=== PATIENT | male | born 1935 | race Caucasian/White ===

== ENCOUNTER 2018-04-27 12:31 | Outpatient (CLI) | payer MEDICARE, BC ==
[~2018-04-27 12:31] MED LIST: Iopamidol 370 76% 100 ML VIAL ONE
--- NOTE | 2018-04-27 14:46 | CT ---
CT ABDOMEN AND PELVIS WITH IV CONTRAST: 04/27/2018 PROVIDED CLINICAL HISTORY: Colon cancer. COMPARISON: None. FINDINGS: The visualized lung bases are free of significant opacity. The liver, spleen, pancreas, kidneys, and adrenal glands demonstrate an unremarkable CT appearance. There is focal mass-like mural prominence involving the distal ascending colon, near the hepatic flex ure, presumably reflecting the provided clinical history of known colon cancer. There is lack of ora l contrast material within the cecum, which could be on the basis of retained fecal material and/or m ass. There is no evidence for bowel obstruction. There is no inflammatory fat stranding, free fluid, or retroperitoneal lymph node enlargement. There is a mildly prominent lymph node present at the medial margin of the colonic mass that may reflect a n involved lymph node. This is not enlarged. Vascular calcification is noted involving the abdominal aorta and its branches, including conspicuous focal calcification involving the distal aspects of the proximal superior mesenteric artery. Postoperative changes of prior prostatectomy are noted. There are small fat-containing bilateral ing uinal hernias. The osseous structures demonstrate no concerning lytic or blastic lesions. Lumbar spine degenerative changes are seen. IMPRESSION: 1. Abnormalities of the right colon, one or both of which may correspond to the provided clinical hi story of known colon cancer. 2. No CT evidence for distant metastatic disease. 3. Chronic findings as above. POS: [facility]
== END 2018-04-27 12:32 | disposition home or self-care (01) ==
LOC: BICCT 12:31
PROVIDERS: ATTEND Internal Medicine
DX: K63.89 Other specified diseases of intestine (principal); R93.3 Abnormal findings on diagnostic imaging of other parts of digestive tract; I70.0 Atherosclerosis of aorta; K40.20 Bilateral inguinal hernia, without obstruction or gangrene, not specified as recurrent; K55.1 Chronic vascular disorders of intestine; M47.816 Spondylosis without myelopathy or radiculopathy, lumbar region; Z90.79 Acquired absence of other genital organ(s)
CPT/HCPCS: 74177; 82565; Q9967

== ENCOUNTER 2018-05-09 13:07 | Outpatient (CLI) | payer MEDICARE, BC ==
[2018-05-09] MEDS ORDERED: ISOVUE-370 76%-LOCM 1 ML ONE (13:45)
--- NOTE | 2018-05-09 14:27 | CT ---
CT CHEST WITH CONTRAST: Technique: Multiple contiguous axial images were obtained through the chest with IV enhancement. Indications: Colon cancer. Staging. Comparison: No comparison chest CT. FINDINGS: The lung anderson are well aerated. There is a pleural based nodule in the peripheral left upper lobe measuring up to 1.3 cm AP dimension axial plane. Just inferior to this is another tiny pleural based nodule measuring approximately 3 mm . In the lingula of the left upper lobe there is a linear opacity which extends to the pleural surface and there is some mild pleural thickening at this location peripherally. This has the appearance of d ense plate-like atelectasis. There is mild stranding in both lower lobes, slightly more prominent on the left which appears chroni c. Several old left sided rib fractures are noted. The mediastinum is unremarkable. No adenopathy. Images through the upper abdomen unremarkable. IMPRESSION: 1. Pleural based nodule in the peripheral left upper lobe measuring up to 1.3 cm AP dimension. 2. Linear opacity in the lingula of the left upper lobe extending to the pleural surface, probable pl ate-like atelectasis. Recommend short term follow up to confirm stability. Suggest repeat chest CT in 3-4 months unless further imaging with PET scan is performed as staging, in which case these densiti es could be assessed. POS: [facility]
== END 2018-05-09 13:08 | disposition home or self-care (01) ==
LOC: BICCT 13:07
PROVIDERS: ATTEND Internal Medicine Hematology & Oncology
DX: C18.2 Malignant neoplasm of ascending colon (principal); R91.8 Other nonspecific abnormal finding of lung field
CPT/HCPCS: 71260; Q9966

== ENCOUNTER 2018-05-19 09:11 | Outpatient (CLI) | payer MEDICARE, BC ==
--- NOTE | 2018-05-19 14:15 | PET ---
PET SCAN WITH CT ATTENUATION CORRECTION: COMPARISON: None. CORRELATION: Chest CT 05/09/2018, abdomen CT 04/27/2018. HISTORY: Colon cancer with a 1.3 cm left upper lobe nodule. TECHNIQUE: PET scan with CT attenuation correction is performed from the base of the brain to the proximal thigh s following the intravenous administration of 12.9 mCi of [id number]. FINDINGS: HEAD AND NECK: No abnormal FDG localization. CHEST: No abnormal FDG localization with regards to the nodule in the left upper lobe. There are no areas o f abnormal FDG avidity in the chest. ABDOMEN AND PELVIS: With regards to the solid organs, no abnormal FDG localization. There is increased FDG avidity invol ving the ileocecal junction with a maximum SUV of 16.7. There is increased FDG avidity involving the hepatic flexure. There is increased FDG avidity involving the sigmoid colon and rectum. FDG avidit y at the level of the rectum is 7. OSSEOUS STRUCTURES: No abnormal FDG avidity. IMPRESSION: 1. Fluorodeoxyglucose avidity involving 3 separate areas of the colon. Please refer to previous col onoscopy with regards for the site of presumed colon cancer. 2. No evidence of fluorodeoxyglucose avidity involving a nodule of the left upper lobe. POS: [facility]
== END 2018-05-19 09:12 | disposition home or self-care (01) ==
LOC: PET 09:11
PROVIDERS: ATTEND Internal Medicine Hematology & Oncology
DX: C18.9 Malignant neoplasm of colon, unspecified (principal); R91.1 Solitary pulmonary nodule
CPT/HCPCS: 78815; A9552

== ENCOUNTER 2018-05-22 11:00 | Inpatient (IN) | payer MEDICARE, BC ==
[2018-05-22 12:12] VITALS: BMI 28.7
[2018-05-30] MEDS ORDERED: Fentanyl 100 MCG/2 ML VIAL ONE ×3 (06:19→06:32)
[2018-05-30] MEDS ORDERED: Midazolam HCl 2 mg/2 ml Vial ONE (06:19)
[2018-05-30] MEDS ORDERED: Dexamethasone 4 mg/ml Vial ONE (06:19)
[2018-05-30] MEDS ORDERED: cefOXitin 2 GM VIAL ONE (06:38)
[2018-05-30] MEDS ORDERED: Sodium Chloride 0.9% 100 ML ONE (06:39)
[2018-05-30] MEDS ORDERED: ceFOXitin 1 GM VIAL ONE (10:08)
[2018-05-30] MEDS ORDERED: Ondansetron HCl/PF 4 MG/2 ML Vial IVP PRN (10:40)
[2018-05-30] MEDS ORDERED: Promethazine HCl 25 MG/ML VIAL IM PRN ×2 (10:40→12:33)
[2018-05-30] MEDS ORDERED: Promethazine HCl 25 MG/ML VIAL SLOW IVP PRN (10:40)
[2018-05-30] MEDS ORDERED: Acetaminophen 1,000 MG in Premix Bag 1 BAG IVPB SCH (12:00)
[2018-05-30] MEDS ORDERED: Fentanyl 100 MCG/2 ML VIAL SLOW IVP PRN (12:33)
[2018-05-30] MEDS ORDERED: traMADol HCl 50 MG TAB PO PRN (12:33)
[2018-05-30] MEDS ORDERED: hydrALAZINE 20 MG/ML VIAL SLOW IVP PRN (12:33)
[2018-05-30] MEDS ORDERED: Bupivacaine HCl 0.5%/Epinephrine 1:200,000/PF 30 ml Vial ONE (13:29)
[2018-05-30] MEDS: traMADol HCl 50 MG TAB PO PRN (14:30)
[2018-05-30] MEDS: Sodium Chloride 0.9% 1,000 ML IV SCH (14:31)
[2018-05-30] MEDS: Acetaminophen 1,000 MG in Premix Bag 1 BAG IVPB SCH ×2 (14:31→20:22)
[2018-05-30] MEDS ORDERED: PHENYLEPHRINE-NS 100 MCG/ML 10 ML SYRINGE ONE (15:29)
[2018-05-30] MEDS ORDERED: Lidocaine 1% PF 5 ML VIAL ONE (15:29)
[2018-05-30] MEDS ORDERED: Rocuronium Bromide 10 MG/ML (10ML VIAL) ONE (15:29)
[2018-05-30] MEDS ORDERED: Ondansetron PF 4 MG/2 ML Vial ONE (15:29)
[2018-05-30] MEDS ORDERED: ePHEDrine 50 MG/ML VIAL ONE (15:29)
[2018-05-30] MEDS ORDERED: PROPOFOL 200 MG/20 ML VIAL ONE (15:29)
[2018-05-30] MEDS ORDERED: Glycopyrrolate 0.2 MG/ML 5 ML SYRINGE ONE (15:29)
[2018-05-30] MEDS ORDERED: Dexamethasone 20 MG/5 ML VIAL ONE (15:29)
[2018-05-30] MEDS ORDERED: cefOXitin 2 GM in Sodium Chloride 0.9% 100 ML IVPB SCH (16:00)
[2018-05-30] MEDS: cefOXitin Sodium/Dextrose,Iso 2 GM in Premix Bag 1 BAG IVPB SCH (17:12)
[2018-05-30] MEDS: Ondansetron PF 4 MG/2 ML Vial IVP PRN (17:32)
[2018-05-30] MEDS ORDERED: Enoxaparin Sodium 40 MG/0.4 ML SYRINGE SC SCH (21:00)
[2018-05-31] MEDS: cefOXitin Sodium/Dextrose,Iso 2 GM in Premix Bag 1 BAG IVPB SCH (00:18)
[2018-05-31] MEDS: Ondansetron PF 4 MG/2 ML Vial IVP PRN (00:29)
[2018-05-31] MEDS: Sodium Chloride 0.9% 1,000 ML IV SCH (00:30)
[2018-05-31] MEDS: Acetaminophen 1,000 MG in Premix Bag 1 BAG IVPB SCH ×2 (02:14→08:46)
[2018-05-31] MEDS: traMADol HCl 50 MG TAB PO PRN ×2 (05:02→13:20)
[2018-05-31 06:32] LABS: #Lymphocytes 1.3 thou/uL (1.20-3.40); #Monocytes 1.3 thou/uL (0.11-0.59); #Neutrophils 11.3 thou/uL (1.40-6.50); %Basophils 0.2 % (0.0-1.0); %Eosinophils 0.1 % (0.0-10.0); %Lymphocytes 9.2 % (21.0-51.0); %Monocytes 9.2 % (0.0-10.0); %Neutrophils 81.3 % (42.0-75.0); Anisocytosis SLIGHT = 6-15 cells (100X) (0-5/hpf); Hemoglobin 11.4 g/dL (14.0-18.0); MDiff Complete? YES; Mean Corpuscular HGB CONC 31.4 g/dL (32.0-36.0); Mean Corpuscular Hemoglobin 27.8 pg (27.0-31.0); Mean Corpuscular Volume 88.4 fL (78.0-98.0); Mean Platelet Volume 9.2 fL (7.4-10.4); Platelet Count 225 thou/uL (130-400); RBC Distribution Width 20.3 % (11.5-14.5); Red Blood Cell (RBC) Count 4.09 mill/uL (4.70-6.10); White Blood Cell (WBC) Count 13.9 thou/uL (4.8-10.8)
[2018-05-31 06:54] LABS: Anion Gap 12 mmol/L (10-20); BUN (Urea Nitrogen) 15 mg/dL (8.4-25.7); Calc. Creatinine Clearance 66 mL/min (70-130); Calcium 8.5 mg/dL (7.8-10.44); Carbon Dioxide 21 mmol/L (23-31); Chloride 105 mmol/L (98-107); Estimated GFR-MDRD 65; Glucose 141 mg/dL (83-110); Potassium 4.1 mmol/L (3.5-5.1); Sodium 134 mmol/L (136-145)
[2018-05-31] MEDS ORDERED: Sodium Chloride 0.9% 1,000 ML IV SCH (07:46)
[2018-05-31] MEDS: Lisinopril 10 MG TAB PO SCH (08:47)
[2018-05-31] MEDS: Amlodipine 10 MG TAB PO SCH (08:47)
[2018-05-31] MEDS ORDERED: Famotidine/PF 20 mg/2ml Vial SLOW IVP SCH (09:00)
[2018-05-31] MEDS ORDERED: Famotidine 20 MG TAB PO SCH (09:00)
--- NOTE | 2018-05-31 10:42 | PDOC.GSPN ---
Surgery Progress Note: Subj - Subjective Patient reports: tolerating liquids well Narrative: Pain well controlled, walking in tena Surgery Progress Note: Obj - Vital signs Vital signs: Vital Signs - Most Recent Temp Pulse Resp BP Pulse Ox 97.7 F 66 14 166/73 H 97 05/31/18 08:00 05/31/18 08:47 05/31/18 08:00 05/31/18 08:47 05/31/18 08:00 - Physical Exam General: no distress Cardiovascular: regular rate and rhythm Respiratory: clear to auscultation Abdomen: soft, appropriately tender Wound: healing well Surgery Progress Note: Results - Labs Result Diagrams: 05/31/18 05:26 05/31/18 05:26 Lab results: Laboratory Results - last 24 hr 05/31/18 05/31/18 05:26 05:26 WBC 13.9 H RBC 4.09 L Hgb 11.4 L Hct 36.1 L MCV 88.4 MCH 27.8 MCHC 31.4 L RDW 20.3 H Plt Count 225 MPV 9.2 Neutrophils % 81.3 H Neutrophils % (Manual) Not Reportable Lymphocytes % 9.2 L Monocytes % 9.2 Eosinophils % 0.1 Basophils % 0.2 Neutrophils # 11.3 H Lymphocytes # 1.3 Monocytes # 1.3 H Eosinophils # 0.0 Basophils # 0.0 Anisocytosis SLIGHT = 6-15 cells Sodium 134 L Potassium 4.1 Chloride 105 Carbon Dioxide 21 L Anion Gap 12 BUN 15 Creatinine 1.08 Estimated GFR (MDRD) 65 Glucose 141 H Calcium 8.5 Surgery Progress Note: A/P - Problem (1) Mass of hepatic flexure of colon Current Visit: Yes Code(s): K63.9 - DISEASE OF INTESTINE, UNSPECIFIED Status : Acute - Plan Plan: POD 1 total abd colectomy -await path -full liquids -ostomy teaching
--- NOTE | 2018-05-31 11:02 | OP ---
DATE OF PROCEDURE: 05/30/2018 PREOPERATIVE DIAGNOSES: 1. Cecal and hepatic flexure of colon masses. 2. Multiple sessile polyps throughout the right transverse colon, descending colon, and sigmoid colon. PROCEDURES PERFORMED: Total abdominal colectomy with ileorectal anastomosis, diverting loop ileostomy, mobilization of splenic flexure. ANESTHESIA: General. ESTIMATED BLOOD LOSS: 50 mL. COMPLICATIONS: None. FINDINGS: The masses are in the colon after opening specimen on the back table. INDICATION: The patient is an 83-year-old male, who recently underwent colonoscopy revealing a mass in the hepatic flexure of colon. He had multiple sessile polyps throughout the colon, most of which were not resectable. He presents for definitive colectomy. DESCRIPTION OF PROCEDURE: The patient was taken to the operating room, laid in supine position on the operating room table. After general anesthetic was obtained, the abdomen was prepped and draped in a sterile fashion. A Valenzuela catheter had been placed. The patient was placed in lithotomy position. A midline incision was made. The abdomen was entered carefully. Bookwalter retractor was placed. The right colon was mobilized along the white line of Toldt. Ureter was found excluded from the dissection. Hepatic flexure was mobilized in the usual fashion. Lesser sac was entered to mobilize the transverse colon. The ileocolic vessels were taken near its base. Middle colic was taken near its base using Danyelle clamps and silk ties. Splenic flexure was mobilized in the usual fashion. Descending colon mobilized along the white line of Toldt. The ureter was found and excluded from the dissection on the left. Dissection was taken down into the pelvis. CHERISE was taken near its base. Dissection was taken down in the presacral area all the way down to the rectosigmoid junction. Stapler was fired across the terminal ileum. A reload was fired across the rectosigmoid junction. The colon was opened on the back table to reveal the masses to be in the specimen sent to Path. A [id number] ileorectal anastomosis was performed from the end of the ileum down into the rectum. The common colotomy and enterotomy were closed using running Vicryl suture in 2 layers. Proximal to this location found for ileostomy. Ellipse of the skin taken out from the left lower quadrant with a cruciate incision and the fascia was performed all the way into the abdominal cavity. The loop ileostomy was brought up through here and held in place using a [place]. The abdomen was irrigated. There was no ongoing bleeding. PDS was used to close the fascia from the top and the bottom, and tied in the middle. Subcutaneous tissues were irrigated and closed using 3-0 Vicryl, 4-0 Monocryl, and Dermabond. The ostomy was matured in the usual fashion using 3-0 Vicryl suture. The patient was sent to Recovery in stable condition. All instrument counts, needle counts, and lap counts were correct. Job ID: [id number]
[2018-06-01 05:11] VITALS: TEMP 97.6
[2018-06-01 06:14] LABS: #Eosinphils 0.2 thou/uL (0.0-0.7); #Lymphocytes 2.1 thou/uL (1.20-3.40); #Monocytes 0.8 thou/uL (0.11-0.59); #Neutrophils 8.6 thou/uL (1.40-6.50); %Basophils 0.4 % (0.0-1.0); %Eosinophils 1.4 % (0.0-10.0); %Lymphocytes 17.9 % (21.0-51.0); %Monocytes 7.1 % (0.0-10.0); %Neutrophils 73.2 % (42.0-75.0); Hemoglobin 10.8 g/dL (14.0-18.0); Mean Corpuscular Hemoglobin 28.1 pg (27.0-31.0); Mean Corpuscular Volume 93.8 fL (78.0-98.0); Mean Platelet Volume 9.9 fL (7.4-10.4); Platelet Count 177 thou/uL (130-400); RBC Distribution Width 20.6 % (11.5-14.5); Red Blood Cell (RBC) Count 3.85 mill/uL (4.70-6.10); White Blood Cell (WBC) Count 11.7 thou/uL (4.8-10.8)
--- NOTE | 2018-06-01 07:31 | PDOC.GSPN ---
Surgery Progress Note: Subj - Subjective Patient reports: feels better Narrative: Patient is a 83 yo male POD2 for total abdominal colectomy with ileostomy for right sided malignancy and multiple polyps. He is resting well, pain is controlled. He was able to ambulate yesterday and has been using incentive spirometry regularly. Jesus catheter was placed due to inability to void. he denied SOB and chest pain Surgery Progress Note: Obj - Vital signs Vital signs: Vital Signs - Most Recent Temp Pulse Resp BP Pulse Ox 97.6 F 54 L 16 137/77 95 06/01/18 05:10 06/01/18 05:10 06/01/18 05:10 06/01/18 05:10 06/01/18 05:10 - Physical Exam General: no distress, no pain Neck: no lymphadectomy Cardiovascular: regular rate and rhythm, no murmur Respiratory: clear to auscultation, normal expansion, breath sounds present Abdomen: soft, nondistended, decreased bowel sounds, appropriately tender Wound: dressing clean,dry,intact, healing well (some surrounding incisional ecchymosis present) Surgery Progress Note: Results - Labs Result Diagrams: 06/01/18 05:16 05/31/18 05:26 Lab results: Laboratory Results - last 24 hr 06/01/18 05:16 WBC 11.7 H RBC 3.85 L Hgb 10.8 L Hct 36.2 L MCV 93.8 MCH 28.1 MCHC 30.0 L RDW 20.6 H Plt Count 177 MPV 9.9 Neutrophils % 73.2 Neutrophils % (Manual) Not Reportable Lymphocytes % 17.9 L Monocytes % 7.1 Eosinophils % 1.4 Basophils % 0.4 Neutrophils # 8.6 H Lymphocytes # 2.1 Monocytes # 0.8 H Eosinophils # 0.2 Basophils # 0.0 Surgery Progress Note: A/P - Problem (1) Mass of hepatic flexure of colon Current Visit: Yes Code(s): K63.9 - DISEASE OF INTESTINE, UNSPECIFIED Status : Acute Assessment and Plan: continue clear liquids today advance to full if tolerated at end of day, ambulate X3, tramadol for pain, monitor ileostomy output. IVF now at 30ml/hr, DC if able to continue adequate oral hydration. Contin DVT/GI prophylaxis (2) Urinary retention with incomplete bladder emptying Current Visit: Yes Code(s): R33.9 - RETENTION OF URINE, UNSPECIFIED Status: Acute Assessment and Plan: continue jesus, if ambulating well today D/C tomorrow with trial of independent urination
[2018-06-01] MEDS: Amlodipine 10 MG TAB PO SCH (08:10)
[2018-06-01] MEDS: Lisinopril 10 MG TAB PO SCH (08:11)
[2018-06-01 11:52] VITALS: BP 143/73
[2018-06-01] MEDS ORDERED: Acetaminophen 325 MG TAB PO PRN (14:06)
--- NOTE | 2018-06-01 15:05 | DIS ---
DATE OF ADMISSION: 05/30/2018 DATE OF DISCHARGE: 06/01/2018 ADMITTING DIAGNOSIS: Right colon mass, multiple colon polyps. DISCHARGE DIAGNOSIS: Right colon mass, multiple colon polyps. PROCEDURES: Total abdominal colectomy with loop ileostomy by Jane without complication. CONDITION ON DISCHARGE: Improved. STAFF: Wili Lara MD HOSPITAL COURSE: The patient had urinary retention, needs a catheter to go home with a leg bag. He is tolerating a full liquid diet. He is going to continue that for two days at home and then do casseroles for few days. Flomax sent to his pharmacy. On the day of discharge, he is doing well. He is afebrile. Pain is well controlled. He is discharged home. Home Health is going to help with ostomy care at home. Job ID: [id number]
[2018-06-01] MEDS ORDERED: Enoxaparin Sodium 40 MG/0.4 ML SYRINGE SC SCH (21:00)
== END 2018-06-01 14:57 | disposition home or self-care (01) | DRG 331 ==
LOC: EDSTATUS 11:00 → SURG A 05-30 05:51
PROVIDERS: ADMIT Surgery; ATTEND Surgery
PROC: 0DTE0ZZ Resection of Large Intestine, Open Approach (ICD-10-PCS; principal; 2018-05-31)
PROC: 0D1B0Z4 Bypass Ileum to Cutaneous, Open Approach (ICD-10-PCS; 2018-05-31)
DX: C18.9 Malignant neoplasm of colon, unspecified (principal); I48.91 Unspecified atrial fibrillation; I10 Essential (primary) hypertension; R33.9 Retention of urine, unspecified; Z79.899 Other long term (current) drug therapy; Z88.0 Allergy status to penicillin; D12.4 Benign neoplasm of descending colon; D12.5 Benign neoplasm of sigmoid colon; D12.3 Benign neoplasm of transverse colon
CPT/HCPCS: 36415; 36416; 80048; 85025; 88309; 88313; 88342; J0131; J0670; J0694; J1100; J1650; J2001; J2250; J2405; J2704; J3010; J3490

== ENCOUNTER 2018-05-22 12:38 | Outpatient (CLI) | payer MEDICARE, BC ==
[2018-05-22 13:11] LABS: #Basophils 0.1 thou/uL (0.0-0.2); #Eosinphils 0.2 thou/uL (0.0-0.7); #Lymphocytes 2.2 thou/uL (1.20-3.40); #Monocytes 0.7 thou/uL (0.11-0.59); #Neutrophils 5.2 thou/uL (1.40-6.50); %Basophils 0.8 % (0.0-1.0); %Eosinophils 2.7 % (0.0-10.0); %Lymphocytes 25.9 % (21.0-51.0); %Monocytes 8.9 % (0.0-10.0); %Neutrophils 61.8 % (42.0-75.0); Hemoglobin 11.4 g/dL (14.0-18.0); Mean Corpuscular HGB CONC 31.1 g/dL (32.0-36.0); Mean Platelet Volume 9.1 fL (7.4-10.4); Platelet Count 239 thou/uL (130-400); RBC Distribution Width 19.5 % (11.5-14.5); Red Blood Cell (RBC) Count 4.23 mill/uL (4.70-6.10); White Blood Cell (WBC) Count 8.3 thou/uL (4.8-10.8)
[2018-05-22 13:22] LABS: PTT 28.9 SEC (22.9-36.1); Prothrombin Time 13.7 SEC (12.0-14.7)
[2018-05-22 13:30] LABS: Hemoglobin A1c 4.1 % (4.0-6.0)
[2018-05-22 13:38] LABS: Anion Gap 11 mmol/L (10-20); BUN (Urea Nitrogen) 15 mg/dL (8.4-25.7); Calc. Creatinine Clearance 0 mL/min (70-130); Carbon Dioxide 24 mmol/L (23-31); Chloride 109 mmol/L (98-107); Estimated GFR-MDRD 68; Glucose 82 mg/dL (83-110); Potassium 3.8 mmol/L (3.5-5.1); Sodium 140 mmol/L (136-145)
--- NOTE | 2018-05-23 22:28 | EKG ---
Test Reason : Blood Pressure : / mmHG Vent. Rate : 051 BPM Atrial Rate : 159 BPM P-R Int : 000 ms QRS Dur : 102 ms QT Int : 466 ms P-R-T Axes : 000 -58 042 degrees QTc Int : 429 ms Atrial fibrillation with slow ventricular response Incomplete right bundle branch block Left anterior fascicular block Abnormal ECG When compared with ECG of 22-OCT-2009 16:08, Atrial fibrillation has replaced Electronic ventricular pacemaker Confirmed by Joann HUBER ([id number]) on 05/23/2018 10:28:25 PM Referred By: DINESH Confirmed By:Joann HUBER
== END 2018-05-22 12:39 | disposition home or self-care (01) ==
LOC: LABBT 12:38
PROVIDERS: ATTEND Surgery
DX: Z01.818 Encounter for other preprocedural examination (principal); C18.9 Malignant neoplasm of colon, unspecified; I48.91 Unspecified atrial fibrillation
CPT/HCPCS: 80048; 83036; 85025; 85610; 85730; 93005; 93010

== ENCOUNTER 2018-06-27 10:09 | Outpatient (CLI) | payer MEDICARE, BC ==
[~2018-06-27 10:09] MED LIST changes: -Iopamidol 370 76% 100 ML VIAL ONE; +MD-Gastroview 120 ML BOT ONE
--- NOTE | 2018-06-27 13:02 | RAD ---
EXAM: XR Gastrografin Enema Solid Column PROVIDED CLINICAL HISTORY: Colon cancer evaluate rectal anastomosis. COMPARISON: None FINDINGS: Gastrografin enema was performed in the usual fashion. There is a small bowel/rectal anastomosis seen . Contrast freely flows through the region of the anastomosis and subsequently into the patient's colostomy bag; there is no extravasation of contrast seen to suggest a leak. Multiple surgical clips overlie the pelvis likely related to prior prostatectomy. IMPRESSION: Gastrografin enema demonstrating no extravasation of contrast to suggest a leak in the region of the patient's small bowel/rectal anastomosis.
== END 2018-06-27 10:10 | disposition home or self-care (01) ==
LOC: RAD 10:09
PROVIDERS: ATTEND Surgery
DX: C18.9 Malignant neoplasm of colon, unspecified (principal); K63.89 Other specified diseases of intestine
CPT/HCPCS: 74270; Q9963

== ENCOUNTER 2018-07-07 01:52 | Outpatient (CLI) | payer MEDICARE, BC ==
[2018-07-07 12:18] LABS: Hemoglobin 12.5 g/dL (14.0-18.0); Mean Corpuscular HGB CONC 33.1 g/dL (32.0-36.0); Mean Corpuscular Hemoglobin 29.3 pg (27.0-31.0); Mean Corpuscular Volume 88.3 fL (78.0-98.0); Mean Platelet Volume 9.9 fL (7.4-10.4); Platelet Count 167 thou/uL (130-400); RBC Distribution Width 20.4 % (11.5-14.5); Red Blood Cell (RBC) Count 4.26 mill/uL (4.70-6.10)
[2018-07-07 12:36] LABS: Anion Gap 13 mmol/L (10-20); BUN (Urea Nitrogen) 23 mg/dL (8.4-25.7); Calc. Creatinine Clearance 0 mL/min (70-130); Calcium 9.1 mg/dL (7.8-10.44); Carbon Dioxide 19 mmol/L (23-31); Chloride 112 mmol/L (98-107); Estimated GFR-MDRD 60; Glucose 91 mg/dL (83-110); INR-International Normal Ratio 1.4; PTT 30.5 SEC (22.9-36.1); Potassium 4.7 mmol/L (3.5-5.1); Prothrombin Time 17.4 SEC (12.0-14.7); Sodium 139 mmol/L (136-145)
== END 2018-07-07 01:53 | disposition home or self-care (01) ==
LOC: LABBT 01:52
PROVIDERS: ATTEND Surgery
DX: Z01.812 Encounter for preprocedural laboratory examination (principal); C18.9 Malignant neoplasm of colon, unspecified
CPT/HCPCS: 80048; 85027; 85610; 85730

== ENCOUNTER 2018-07-12 09:40 | Inpatient (IN) | payer MEDICARE, BC ==
[2018-07-12] MEDS ORDERED: Fentanyl 250 MCG/5 ML VIAL ONE (11:29)
[2018-07-12] MEDS ORDERED: Sodium Chloride 0.9% 100 ML ONE (11:39)
[2018-07-12] MEDS ORDERED: cefOXitin 2 GM VIAL ONE (11:39)
[2018-07-12] MEDS ORDERED: hydrALAZINE 20 MG/ML VIAL ONE (13:45)
[2018-07-12] MEDS ORDERED: Promethazine HCl 25 MG/ML VIAL IM PRN (13:53)
[2018-07-12] MEDS ORDERED: hydrALAZINE 20 MG/ML VIAL SLOW IVP PRN (13:53)
[2018-07-12] MEDS ORDERED: Morphine 4 MG/ML VIAL SLOW IVP PRN (13:53)
[2018-07-12] MEDS ORDERED: Ondansetron PF 4 MG/2 ML Vial IVP PRN (13:53)
[2018-07-12] MEDS ORDERED: Fentanyl 100 MCG/2 ML VIAL ONE ×2 (14:01→14:30)
[2018-07-12] MEDS ORDERED: Rocuronium Bromide 10 MG/ML (10ML VIAL) ONE (14:55)
[2018-07-12] MEDS ORDERED: Ondansetron PF 4 MG/2 ML Vial ONE (14:55)
[2018-07-12] MEDS ORDERED: Glycopyrrolate 0.2 MG/ML 5 ML SYRINGE ONE (14:55)
[2018-07-12] MEDS ORDERED: Lidocaine 1% PF 5 ML VIAL ONE (14:55)
[2018-07-12] MEDS ORDERED: PROPOFOL 200 MG/20 ML VIAL ONE (14:55)
[2018-07-12] MEDS ORDERED: Morphine 2 MG/ML SYRINGE SLOW IVP PRN (15:05)
[2018-07-12 15:28] VITALS: BMI 26.4
[2018-07-12] MEDS: Acetaminophen 1,000 MG in Premix Bag 1 BAG IVPB SCH ×2 (16:07→22:36)
[2018-07-12] MEDS: Sodium Chloride 0.9% 1,000 ML IV SCH (16:08)
[2018-07-12] MEDS ORDERED: cefOXitin 2 GM in Sodium Chloride 0.9% 100 ML IVPB SCH (20:00)
[2018-07-12] MEDS ORDERED: Famotidine/PF 20 mg/2ml Vial SLOW IVP SCH (21:00)
[2018-07-12] MEDS ORDERED: Famotidine 20 MG TAB PO SCH (21:00)
[2018-07-12] MEDS: cefOXitin Sodium/Dextrose,Iso 2 GM in Premix Bag 1 BAG IVPB SCH (21:12)
--- NOTE | 2018-07-12 22:00 | OP ---
DATE OF PROCEDURE: 07/12/2018 PREOPERATIVE DIAGNOSIS: Colon cancer, attention to ileostomy. POSTOPERATIVE DIAGNOSIS: Colon cancer, attention to ileostomy. PROCEDURE PERFORMED: Ileostomy reversal (small-bowel resection anastomosis). ANESTHESIA: General. ESTIMATED BLOOD LOSS: 50 mL. COMPLICATIONS: None. DESCRIPTION OF PROCEDURE: The patient was taken to the operating room and laid supine on the operating room table. After general anesthetic was obtained, the abdomen was shaved, prepped, and draped in a sterile fashion. Elliptical incision was used to ellipse out the previous ileostomy in the left lower quadrant. Scar dissected down to all the way into the abdomen around the ostomy. All posterior abdominal wall adhesions were taken down. More small bowel was able to brought up into the wound. A ZHANE 75 stapler was fired across just proximal and distal to the skin area of the ostomy. The mesentery was taken using Danyelle clamps, silk ties, so the skin segment was able to be removed. The resultant 2 ends of small intestine were brought together in an antimesenteric fashion. ZHANE 75 was used to perform the heoh-rs-ampz anastomosis via an enterotomy made on the antimesenteric surface of each. The common enterotomy was closed using TA60 stapler. The staple line, the crotch and the corners were all oversewn using silk suture. The anastomosis was placed back down into the abdominal cavity. The posterior fascia was closed using PDS. The anterior fascia was closed using PDS. The wound was irrigated using sterile solution. The skin was closed using a pursestring of 2-0 Prolene and a Harrison was left in the middle of the wound. The patient was then returned to Recovery in stable condition. All instrument counts, needle counts and lap counts are correct. Job ID: [id number]
[2018-07-13] MEDS: Acetaminophen 1,000 MG in Premix Bag 1 BAG IVPB SCH ×2 (04:45→09:05)
[2018-07-13] MEDS: cefOXitin Sodium/Dextrose,Iso 2 GM in Premix Bag 1 BAG IVPB SCH ×3 (04:50→20:45)
[2018-07-13 05:53] LABS: #Eosinphils 0.2 thou/uL (0.0-0.7); #Lymphocytes 1.5 thou/uL (1.20-3.40); #Monocytes 0.7 thou/uL (0.11-0.59); #Neutrophils 6.7 thou/uL (1.40-6.50); %Basophils 0.2 % (0.0-1.0); %Eosinophils 2.6 % (0.0-10.0); %Lymphocytes 16.7 % (21.0-51.0); %Monocytes 7.4 % (0.0-10.0); Hemoglobin 11.6 g/dL (14.0-18.0); Mean Corpuscular HGB CONC 32.6 g/dL (32.0-36.0); Mean Corpuscular Hemoglobin 29.9 pg (27.0-31.0); Mean Corpuscular Volume 91.8 fL (78.0-98.0); Mean Platelet Volume 9.5 fL (7.4-10.4); Platelet Count 154 thou/uL (130-400); Red Blood Cell (RBC) Count 3.88 mill/uL (4.70-6.10); White Blood Cell (WBC) Count 9.1 thou/uL (4.8-10.8)
[2018-07-13 06:08] LABS: Anion Gap 9 mmol/L (10-20); BUN (Urea Nitrogen) 12 mg/dL (8.4-25.7); Calc. Creatinine Clearance 81 mL/min (70-130); Calcium 8.4 mg/dL (7.8-10.44); Carbon Dioxide 22 mmol/L (23-31); Chloride 109 mmol/L (98-107); Estimated GFR-MDRD 87; Glucose 94 mg/dL (83-110); Potassium 4.3 mmol/L (3.5-5.1); Sodium 136 mmol/L (136-145)
[2018-07-13] MEDS: Sodium Chloride 0.9% 1,000 ML IV SCH (09:03)
[2018-07-13] MEDS: Amlodipine 10 MG TAB PO SCH (09:04)
[2018-07-13] MEDS: Famotidine 20 MG TAB PO SCH ×2 (09:04→20:45)
[2018-07-13] MEDS: Lisinopril 10 MG TAB PO SCH (09:05)
[2018-07-13] MEDS: Famotidine/PF 20 mg/2ml Vial SLOW IVP SCH ×2 (09:05→20:51)
[2018-07-13] MEDS ORDERED: Tamsulosin HCl 0.4 MG CAP PO SCH (12:45)
[2018-07-13] MEDS ORDERED: HYDROcodone/Acetaminophen 7.5/325 mg Tablet PO PRN (13:50)
--- NOTE | 2018-07-13 16:39 | PDOC.GSPN ---
Surgery Progress Note: Subj - Subjective Patient reports: pain well controlled, tolerating liquids well (no nausea) Surgery Progress Note: Obj - Vital signs Vital signs: Vital Signs - Most Recent Temp Pulse Resp BP Pulse Ox 97.9 F 54 L 20 146/58 H 94 L 07/13/18 11:55 07/13/18 11:55 07/13/18 11:55 07/13/18 11:55 07/13/18 12:00 - Physical Exam General: no distress Cardiovascular: regular rate and rhythm Respiratory: clear to auscultation Abdomen: soft, appropriately tender Wound: dressing clean,dry,intact Surgery Progress Note: Results - Labs Result Diagrams: 07/13/18 05:11 07/13/18 05:11 Lab results: Laboratory Results - last 24 hr 07/13/18 07/13/18 05:11 05:11 WBC 9.1 RBC 3.88 L Hgb 11.6 L Hct 35.6 L MCV 91.8 MCH 29.9 MCHC 32.6 RDW 20.0 H Plt Count 154 MPV 9.5 Neutrophils % 73.0 Lymphocytes % 16.7 L Monocytes % 7.4 Eosinophils % 2.6 Basophils % 0.2 Neutrophils # 6.7 H Lymphocytes # 1.5 Monocytes # 0.7 H Eosinophils # 0.2 Basophils # 0.0 Sodium 136 Potassium 4.3 Chloride 109 H Carbon Dioxide 22 L Anion Gap 9 L BUN 12 Creatinine 0.84 Estimated GFR (MDRD) 87 Glucose 94 Calcium 8.4 Surgery Progress Note: A/P - Problem (1) Mass of hepatic flexure of colon Current Visit: No Code(s): K63.9 - DISEASE OF INTESTINE, UNSPECIFIED Status : Acute (2) Atrial fibrillation Current Visit: No Code(s): I48.91 - UNSPECIFIED ATRIAL FIBRILLATION Status: Acute - Plan Plan: Post-op day 1 ileostomy take down. -Advance to full liquids -Start flomax -Attempt jesus removal tomorrow. Addendum - Physician - Physician Attestation Date/Time: 07/13/18 9019 I personally performed or re-performed the physical examination and medical decision making. I have verified all student documentation or findings, including history, physical exam and/or medical decision making.
[2018-07-14] MEDS: cefOXitin Sodium/Dextrose,Iso 2 GM in Premix Bag 1 BAG IVPB SCH (03:48)
[2018-07-14] MEDS: Lisinopril 10 MG TAB PO SCH (08:26)
[2018-07-14] MEDS: Famotidine 20 MG TAB PO SCH ×2 (08:26→19:57)
[2018-07-14] MEDS: Amlodipine 10 MG TAB PO SCH (08:26)
[2018-07-14] MEDS: Tamsulosin HCl 0.4 MG CAP PO SCH (08:26)
[2018-07-14] MEDS: Famotidine/PF 20 mg/2ml Vial SLOW IVP SCH ×2 (08:28→19:59)
[2018-07-14] MEDS ORDERED: Milk Of Magnesia 30 ML UDCUP PO SCH (08:45)
--- NOTE | 2018-07-14 08:45 | PDOC.GSPN ---
Surgery Progress Note: Subj - Subjective Patient reports: no new complaints, no bowel movement Surgery Progress Note: Obj - Vital signs Vital signs: Vital Signs - Most Recent Temp Pulse Resp BP Pulse Ox 97.7 F 82 16 151/77 H 96 07/14/18 08:40 07/14/18 08:40 07/14/18 08:40 07/14/18 08:40 07/14/18 08:40 - Physical Exam General: no distress Cardiovascular: regular rate and rhythm Respiratory: clear to auscultation Abdomen: soft, appropriately tender Wound: dressing clean,dry,intact Surgery Progress Note: Results - Labs Result Diagrams: 07/13/18 05:11 07/13/18 05:11 Surgery Progress Note: A/P - Problem (1) Mass of hepatic flexure of colon Current Visit: No Code(s): K63.9 - DISEASE OF INTESTINE, UNSPECIFIED Status : Acute (2) Atrial fibrillation Current Visit: No Code(s): I48.91 - UNSPECIFIED ATRIAL FIBRILLATION Status: Acute - Plan Plan: POD 2 -will go home with catheter -milk of magnesium -home tomorrow -resume coumadin tomorrow
[2018-07-14] MEDS: Enoxaparin Sodium 40 MG/0.4 ML SYRINGE SC SCH (09:50)
[2018-07-15] MEDS ORDERED: Sodium Chloride 0.9% 500 ML IV SCH (06:15)
[2018-07-15] MEDS: Amlodipine 10 MG TAB PO SCH (08:45)
[2018-07-15] MEDS: Famotidine 20 MG TAB PO SCH (08:45)
[2018-07-15] MEDS: Lisinopril 10 MG TAB PO SCH (08:46)
[2018-07-15] MEDS: Tamsulosin HCl 0.4 MG CAP PO SCH (08:46)
[2018-07-15] MEDS: Enoxaparin Sodium 40 MG/0.4 ML SYRINGE SC SCH (08:46)
[2018-07-15] MEDS: Famotidine/PF 20 mg/2ml Vial SLOW IVP SCH (09:25)
[2018-07-15 12:10] VITALS: BP 109/69; TEMP 97.5
--- NOTE | 2018-07-15 20:30 | DIS ---
DATE OF ADMISSION: 07/12/2018 DATE OF DISCHARGE: 07/15/2018 ADMITTING DIAGNOSIS: Attention to ileostomy, history of colon cancer. DISCHARGE DIAGNOSES: Attention to ileostomy, history of colon cancer. PROCEDURES: Ileostomy reversal by Dr. Lara without complication. CONDITION AT DISCHARGE: Improved. STAFF: Dr. Lara. HOSPITAL COURSE: The patient's postop course was uneventful. He was unable to void. He is going to go home with a leg bag. His Coumadin will be restarted today upon discharge. He is tolerating a liquid diet. He will do full liquids for 2 more days and then start a casserole type diet and follow up with me on for catheter removal Job ID: [id number]
== END 2018-07-15 12:30 | disposition home or self-care (01) | DRG 331 ==
LOC: SURG A 09:40 → EDSTATUS 14:47 → SURG B 15:15
PROVIDERS: ADMIT Surgery; ATTEND Surgery
PROC: 0DSB0ZZ Reposition Ileum, Open Approach (ICD-10-PCS; principal; 2018-07-12)
DX: Z43.2 Encounter for attention to ileostomy (principal); I48.91 Unspecified atrial fibrillation; Z79.01 Long term (current) use of anticoagulants; Z88.0 Allergy status to penicillin; Z85.038 Personal history of other malignant neoplasm of large intestine; Z79.899 Other long term (current) drug therapy; Z96.651 Presence of right artificial knee joint; Z90.49 Acquired absence of other specified parts of digestive tract
CPT/HCPCS: 36415; 80048; 85025; 88305; J0131; J0360; J0694; J1650; J2001; J2270; J2405; J2704; J3010; J3490; S0028

== ENCOUNTER 2018-12-04 09:03 | Outpatient (CLI) | payer MEDICARE, BC ==
--- NOTE | 2018-12-04 12:33 | CT ---
CT OF CHEST AND ABDOMEN AND PELVIS: Date: 12/04/18 HISTORY: Follow-up of colon cancer of ascending colon. COMPARISON: PET scan of 05/19/[address] of chest of 05/09/18, and a CT of the abdomen of 04/27/18. FINDINGS: The lungs are clear of any infiltrative process. There is some mild emphysematous change. There is a pleural based area of nodularity seen in the left upper lobe, axial image 24, measuring 12 mm, stable as compared to the prior exam. There is a second small 3 mm pleural based nodule also in the left upper lobe seen on axial image 31, also stable as compared to the 05/09/18 study. The pleura l based changes along the major fissure on the left are also stable. There is no significant mediastinal, hilar, or axillary lymphadenopathy. There are some moderate chani nary artery calcifications present. CT of abdomen was performed with IV contrast enhancement. There has been development of multiple (4) low attenuation masses within the right and left lobes of the liver. These are all somewhat ill-defin ed, but range in size from approximately 1.5-2.2 cm and are not seen on the previous exam. The spleen and pancreas regions appear unremarkable. There is some increased attenuation in the gallbladder fun dus, suggestive of a small stone. Right and left adrenal glands, and right and left kidneys are normal in size. There is no significant periaortic or mesenteric lymphadenopathy. The patient has undergone a partial colectomy with anastom osis between small bowel and sigmoid colon. Right and left adrenal glands, and right and left kidneys are normal in size. CT of pelvis was performed with contrast enhancement. Surgical clips related to prior prostate surger y are seen. Some mild bladder wall thickening is noted. No significant pelvic lymphadenopathy. Review of osseous structures show no lytic or blastic bony change. There are old left-sided rib fract ures present. IMPRESSION: 1. Development of multiple liver masses since the previous exam. 2. Stable appearance to pleural based areas of nodularity in the left upper lobe measuring 3.0 and a pproximately 12.0 mm, respectively. Also stable appearance to the more linear pleural based changes a long the major fissure on the left. 3. Probable small gallstone. 4. Subtotal colectomy with anastomosis between the small bowel and sigmoid colon. 5. Postoperative changes related to previous prostate surgery. POS: [facility]
== END 2018-12-04 09:04 | disposition home or self-care (01) ==
LOC: BICCT 09:03
PROVIDERS: ATTEND Internal Medicine Hematology & Oncology
DX: C18.2 Malignant neoplasm of ascending colon (principal); R16.0 Hepatomegaly, not elsewhere classified; R91.8 Other nonspecific abnormal finding of lung field; Z90.49 Acquired absence of other specified parts of digestive tract; Z98.890 Other specified postprocedural states
CPT/HCPCS: 71260; 74177; 82565

== ENCOUNTER 2018-12-07 10:32 | Outpatient (CLI) | payer MEDICARE, BC ==
--- NOTE | 2018-12-07 15:19 | PET ---
PET CT: HISTORY: 83-year-old male with colon cancer, with lesions in the liver on CT scan. Exam requested to evaluate for metastatic disease and staging. Patient has not had chemo or radiation therapy. TECHNIQUE: PET scanning with CT attenuation correction was performed from the base of the brain through the prox imal thighs following the intravenous administration of 12.4 mCi [id number] in the right antecubital fos sa. COMPARISON: PET CT of 05/19/18. CORRELATION: CT chest/abdomen/pelvis 12/04/18. FINDINGS: There are multiple hypermetabolic lesions in the liver involving the right and the left lobes. Maximu m SUV in the right lower lobe lesion is 11.3 and in the left lower lobe region is 11.2. No hypermetabolic pulmonary nodules, adrenal, or skeletal lesions are seen. No carloz hypermetabolism is seen in the neck, chest, axilla, abdomen, pelvis, or inguinal regions. There is physiologic activity in the GI and tracts, and the visualized portions of the brain. The CT scan used for attenuation correction demonstrates no evidence of pleural effusions or ascites. IMPRESSION: Multiple hepatic metastases. POS: [facility]
== END 2018-12-07 10:33 | disposition home or self-care (01) ==
LOC: PET 10:32
PROVIDERS: ATTEND Internal Medicine Hematology & Oncology
DX: C18.9 Malignant neoplasm of colon, unspecified (principal); C78.7 Secondary malignant neoplasm of liver and intrahepatic bile duct
CPT/HCPCS: 78815; A9552

== ENCOUNTER 2018-12-22 09:56 | Day surgery (SDC) | payer MEDICARE, BC ==
[2018-12-18 14:43] VITALS: BMI 27.1
[2018-12-22] MEDS ORDERED: PROPOFOL 200 MG/20 ML VIAL ONE (11:06)
[2018-12-22] MEDS ORDERED: Ondansetron PF 4 MG/2 ML Vial ONE (11:06)
[2018-12-22] MEDS ORDERED: Lidocaine 1% PF 5 ML VIAL ONE (11:06)
[2018-12-22 12:00] LABS: #Basophils 0.1 thou/uL (0.0-0.2); #Eosinphils 0.2 thou/uL (0.0-0.7); #Lymphocytes 3.2 thou/uL (1.20-3.40); #Monocytes 0.7 thou/uL (0.11-0.59); #Neutrophils 4.7 thou/uL (1.40-6.50); %Basophils 0.7 % (0.0-1.0); %Eosinophils 2.2 % (0.0-10.0); %Lymphocytes 36.2 % (21.0-51.0); %Monocytes 8.2 % (0.0-10.0); %Neutrophils 52.7 % (42.0-75.0); Hemoglobin 12.9 g/dL (14.0-18.0); Mean Corpuscular HGB CONC 33.4 g/dL (32.0-36.0); Mean Corpuscular Hemoglobin 32.5 pg (27.0-31.0); Mean Corpuscular Volume 97.5 fL (78.0-98.0); Mean Platelet Volume 8.7 fL (7.4-10.4); Platelet Count 184 thou/uL (130-400); RBC Distribution Width 12.8 % (11.5-14.5); Red Blood Cell (RBC) Count 3.98 mill/uL (4.70-6.10); White Blood Cell (WBC) Count 8.9 thou/uL (4.8-10.8)
[2018-12-22 12:15] LABS: Anion Gap 9 mmol/L (10-20); BUN (Urea Nitrogen) 15 mg/dL (8.4-25.7); Calc. Creatinine Clearance 60 mL/min (70-130); Carbon Dioxide 27 mmol/L (23-31); Chloride 109 mmol/L (98-107); Estimated GFR-MDRD 58; Glucose 90 mg/dL (83-110); Potassium 5.2 mmol/L (3.5-5.1); Sodium 140 mmol/L (136-145)
[2018-12-22] MEDS ORDERED: Levofloxacin 500 mg/D5W 100 ml Premix Bag ONE (12:19)
[2018-12-22] MEDS ORDERED: Lidocaine 2% PF 5 ML VIAL ONE (13:47)
[2018-12-22] MEDS ORDERED: Bupivacaine HCl 0.5%/Epinephrine 1:200,000/PF 30 ml Vial ONE (13:47)
[2018-12-22] MEDS ORDERED: Fentanyl 100 MCG/2 ML VIAL ONE (13:56)
--- NOTE | 2018-12-22 14:23 | EKG ---
Test Reason : PREOP Blood Pressure : / mmHG Vent. Rate : 044 BPM Atrial Rate : 044 BPM P-R Int : 000 ms QRS Dur : 090 ms QT Int : 462 ms P-R-T Axes : 000 -59 -32 degrees QTc Int : 395 ms Atrial fibrillation with slow ventricular response Left axis deviation Low voltage QRS Abnormal ECG When compared with ECG of 22-MAY-2018 12:54, Inferior infarct is now Present ST now depressed in Inferior leads Nonspecific T wave abnormality now evident in Inferior leads Confirmed by DR. Aleta SILVA ([id number]) on 12/22/2018 2:23:28 PM Referred By: GILBERT Confirmed By:DR. Aleta SILVA
--- NOTE | 2018-12-22 15:12 | RAD ---
XR Chest 1 View Portable HISTORY: Mediport catheter placement COMPARISON: 02/04/2017 study FINDINGS: Heart size is within normal limits. There are atherosclerotic changes of the aorta. The jaki gs are clear of infiltrates. A left-sided Mediport catheter is in place, the catheter tip overlies the superior vena cava. There a re no signs of pneumothorax. IMPRESSION: Left-sided Mediport catheter placement. No signs of pneumothorax.
--- NOTE | 2018-12-22 15:23 | OP ---
DATE OF PROCEDURE: 12/22/2018 PREOPERATIVE DIAGNOSIS: Colon cancer, metastatic. POSTOPERATIVE DIAGNOSIS: Colon cancer, metastatic. PROCEDURE PERFORMED: Tunneled central line with subcutaneous port (MediPort CT injectable low-profile). ANESTHESIA: General. ESTIMATED BLOOD LOSS: Minimal. COMPLICATIONS: None. SPECIMEN: None. FINDINGS: Tip of the catheter was at the atriocaval junction. DESCRIPTION OF PROCEDURE: The patient was taken to the operating room and laid supine on the operating room table. After general anesthetic was obtained, the bilateral neck and chest were shaved, prepped, and draped in a sterile fashion. Local anesthetic was infiltrated over the internal jugular vein. The internal jugular vein was cannulated using a 22-gauge finder needle followed by a Seldinger needle. Wire was passed into the superior vena cava under fluoro guidance. A small so was made at the wire entrance site. A separate 3 cm incision was made in the left upper chest. Subcutaneous pocket was made below the lower incision. Tubing for the MediPort tunneled from the inferior to superior incision. Introducer sheath was placed over the wire into the superior vena cava under fluoro guidance. The dilator and wire removed and the end of the catheter sewed into the sheath. The sheath was peeled away. The tip of the catheter was at the atriocaval junction. MediPort tubing was cut to fit the MediPort, connected to the MediPort with lower incision, connected to the MediPort which was sewn to the chest wall in the subcutaneous pocket using Prolene. The wound was irrigated and closed using 3-0 Vicryl, 4-0 Monocryl, and Dermabond. The MediPort flushed and ruslan blood without difficulty and flushed with a heparin flush. The patient was sent to Recovery in stable condition. All instrument counts, needle counts, and lap counts were correct. Job ID: [id number]
== END 2018-12-22 16:22 | disposition home or self-care (01) ==
LOC: SDC 09:56
PROVIDERS: ATTEND Surgery
PROC: 02HV33Z Insertion of Infusion Device into Superior Vena Cava, Percutaneous Approach (ICD-10-PCS; principal; 2018-12-22)
DX: C18.9 Malignant neoplasm of colon, unspecified (principal); I48.91 Unspecified atrial fibrillation; Z79.01 Long term (current) use of anticoagulants; Z79.899 Other long term (current) drug therapy; Z87.891 Personal history of nicotine dependence; Z88.0 Allergy status to penicillin
CPT/HCPCS: 36415; 71045; 80048; 85025; 93005; 93010; C1788; J0670; J1642; J1956; J2001; J2405; J2704; J3010

== ENCOUNTER 2019-03-20 12:09 | Outpatient (CLI) | payer MEDICARE, BC ==
--- NOTE | 2019-03-20 16:10 | PET ---
EXAM: PET/CT HISTORY: Colon cancer; evaluate for response to treatment; history of bone marrow stimulating meds on March 08, 2019 TECHNIQUE: PET scanning with CT attenuation correction was performed from the base of the brain to the proximal thighs following the intravenous administration of 10.9. millicuries [id number]. COMPARISON: Prior PET/CT dated December 07, 2018 FINDINGS: Biodistribution:The biodistribution for the exam appears acceptable. Head and neck: There is appropriate background activity within the brain. No hypermetabolic lymphaden opathy or masses identified. Thorax: No hypermetabolic activity is seen involving the skull nodular scarring in the lingula nor in the subpleural pulmonary nodule in the left upper lobe. No hypermetabolic pleural effusion is demonstrated. Abdomen and pelvis: There is expected background activity within the GI and systems.Previously see n hypermetabolic liver masses are no longer identified. There is some background metabolic activity within the liver. No hypermetabolic ascites is evident. There is circumferential hypermetabolic activ ity now involving the distal sigmoid colon and rectal wall with a peak SUV uptake of 9.71 and mean activity of 6.76. This is new from the prior examination. This is much more prominent than the backgr ound activity seen within the remainder of the GI tract. Osseous structures and skin: There are new multilevel foci of hypermetabolic activity involving the m arrow space of the thoracolumbar spine suspicious for background marrow activity from the patient's recent bone marrow stimulating agent. No definite hypermetabolic suspicious osteolytic or osteoblasti c lesion is identified. No hypermetabolic skin lesion is identified. IMPRESSION: Findings consistent with response to therapy. 1. Interval resolution of the hypermetabolic metastatic lesions within the liver. 2. New circumferential hypermetabolic activity involving the distal sigmoid colon and rectal wall is much more prominent than the remaining GI activity within the abdomen and pelvis. Recurrent malignancy in the sigmoid colon and rectum is less likely. Findings can be seen with a proctitis and colitis. Recommend correlation with the clinical examination. 3. Multilevel foci of hypermetabolic activity involving the marrow space of the thoracolumbar spine i s suspicious for background marrow activity from the patient's recent bone marrow stimulating agent.
== END 2019-03-20 12:10 | disposition home or self-care (01) ==
LOC: PET 12:09
PROVIDERS: ATTEND Internal Medicine Hematology & Oncology
DX: C18.9 Malignant neoplasm of colon, unspecified (principal); C78.7 Secondary malignant neoplasm of liver and intrahepatic bile duct
CPT/HCPCS: 78815; A9552

== ENCOUNTER 2019-04-07 10:46 | Inpatient (IN) | payer MEDICARE, BC ==
--- NOTE | 2019-04-07 11:35 | RAD ---
EXAM: CHEST ONE VIEW HISTORY: Weakness. Altered mental status and personality changes. COMPARISON: 12/22/2018 FINDINGS: The cardiac silhouette and pulmonary vasculature is within normal limits. No consolidation or pleural fluid is seen. Nodular density is seen in the left midlung zone which may be related to area of scarring. An area of nodular scarring was seen in the lingula on prior PET/CT exam on 03/20/2019. Mild increased density seen lateral left chest which is probably due to overlying soft tissue density. Right glenohumeral prosthesis is again seen. Chest is stable compared to prior exam. IMPRESSION: Stable chest without evidence of an acute cardiopulmonary process.
--- NOTE | 2019-04-07 11:38 | CT ---
Exam: Brain CT without IV contrast: HISTORY: Altered mental status Age-related changes with some atrophy and chronic white matter ischemic change. No focal mass or midl ine shift. No intra or extra-axial hemorrhage. Sinuses and mastoids are clear of acute process. IMPRESSION: No significant acute intracranial process. No mass or bleed.
[2019-04-07 12:13] LABS: #Basophils 0.2 thou/uL (0.0-0.2); #Lymphocytes 0.9 thou/uL (1.20-3.40); #Neutrophils 6.9 thou/uL (1.40-6.50); %Basophils 2.6 % (0.0-1.0); %Eosinophils 0.3 % (0.0-10.0); %Lymphocytes 10.4 % (21.0-51.0); %Neutrophils 75.9 % (42.0-75.0); Hemoglobin 11.6 g/dL (14.0-18.0); Mean Corpuscular HGB CONC 34.6 g/dL (32.0-36.0); Mean Corpuscular Hemoglobin 35.2 pg (27.0-31.0); Mean Platelet Volume 9.4 fL (7.4-10.4); Platelet Count 164 thou/uL (130-400); Red Blood Cell (RBC) Count 3.29 mill/uL (4.70-6.10); White Blood Cell (WBC) Count 9.1 thou/uL (4.8-10.8)
[2019-04-07 12:36] LABS: ALT (SGPT) 13 U/L (8-55); AST (SGOT) 15 U/L (5-34); Albumin 3.8 g/dL (3.4-4.8); Alkaline Phosphatase 70 U/L (40-110); Anion Gap 15 mmol/L (10-20); BUN (Urea Nitrogen) 42 mg/dL (8.4-25.7); Bilirubin, Total 0.7 mg/dL (0.2-1.2); Calc. Creatinine Clearance 0 mL/min (70-130); Calcium 8.8 mg/dL (7.8-10.44); Chloride 117 mmol/L (98-107); Estimated GFR-MDRD 27; Globulin 3.1 g/dL (2.4-3.5); Glucose 112 mg/dL (83-110); Lipase 24 U/L (8-78); Magnesium 1.9 mg/dL (1.6-2.6); Potassium 4.8 mmol/L (3.5-5.1); Protein, Total 6.9 g/dL (5.8-8.1); Sodium 136 mmol/L (136-145)
[2019-04-07 12:42] LABS: Carbon Dioxide 9 mmol/L (23-31)
[2019-04-07] MEDS ORDERED: Sodium Bicarb 50 MEQ/50 ML VIAL ONE (13:19)
[2019-04-07] MEDS ORDERED: Lactated Ringer's 1,000 ML IV SCH (14:45)
[2019-04-07] MEDS: Sodium Chloride 0.9% 1,000 ML IV SCH (16:01)
[2019-04-07] MEDS: Heparin 5,000 UNITS/ML VIAL SC SCH (21:11)
[2019-04-07] MEDS: Loperamide HCl 2 MG CAP PO PRN (21:12)
[2019-04-08] MEDS: Loperamide HCl 2 MG CAP PO PRN ×2 (01:49→21:27)
[2019-04-08] MEDS: Sodium Chloride 0.9% 1,000 ML IV SCH ×3 (01:50→21:27)
[2019-04-08] MEDS ORDERED: Lorazepam 2 MG/ML VIAL SLOW IVP SCH (05:15)
[2019-04-08 05:40] LABS: #Monocytes 1.1 thou/uL (0.11-0.59); #Neutrophils 6.4 thou/uL (1.40-6.50); %Eosinophils 0.4 % (0.0-10.0); %Lymphocytes 28.5 % (21.0-51.0); %Monocytes 10.3 % (0.0-10.0); %Neutrophils 60.8 % (42.0-75.0); Hemoglobin 9.6 g/dL (14.0-18.0); Mean Corpuscular HGB CONC 34.7 g/dL (32.0-36.0); Mean Corpuscular Hemoglobin 35.1 pg (27.0-31.0); Mean Platelet Volume 9.2 fL (7.4-10.4); Platelet Count 138 thou/uL (130-400); RBC Distribution Width 16.8 % (11.5-14.5); Red Blood Cell (RBC) Count 2.74 mill/uL (4.70-6.10); White Blood Cell (WBC) Count 10.5 thou/uL (4.8-10.8)
[2019-04-08 05:59] LABS: Lactic Acid 1.3 mmol/L (0.5-2.2)
[2019-04-08 06:02] LABS: ALT (SGPT) 12 U/L (8-55); AST (SGOT) 13 U/L (5-34); Albumin 3.3 g/dL (3.4-4.8); Alkaline Phosphatase 69 U/L (40-110); Anion Gap 14 mmol/L (10-20); BUN (Urea Nitrogen) 41 mg/dL (8.4-25.7); Bilirubin, Total 0.8 mg/dL (0.2-1.2); Calc. Creatinine Clearance 38 mL/min (70-130); Calcium 8.5 mg/dL (7.8-10.44); Carbon Dioxide 11 mmol/L (23-31); Chloride 118 mmol/L (98-107); Estimated GFR-MDRD 39; Globulin 2.7 g/dL (2.4-3.5); Glucose 101 mg/dL (83-110); Magnesium 1.7 mg/dL (1.6-2.6); Potassium 3.9 mmol/L (3.5-5.1); Sodium 139 mmol/L (136-145)
--- NOTE | 2019-04-08 07:11 | HP ---
Encounter date: 04/07/19 CHIEF COMPLAINT: Altered mental status and diarrhea. HISTORY OF PRESENT ILLNESS: This patient is an 83-year-old male, who has a history of a subtotal colectomy due to history of colon cancer. He had a diverting ileostomy with reversal. The patient has continuously had some issues with diarrhea. Subsequently, he reports that couple of weeks ago it got worse. He was told he had an infection of the colon and was placed on antibiotics. He reports the diarrhea improved briefly, but then came back worse than before the initial antibiotic treatment. With worsening diarrhea, he has become progressively weak and began to be altered. The family reported he was not making sense much of the time during the day and was talking "out of his head" during the night, therefore they brought him to the emergency department. In the emergency department with some fluid resuscitation, the patient reports he is already feeling substantially better. REVIEW OF SYSTEMS: The patient denies any fevers or chills, nausea or vomiting, abdominal pain, or chest pain. He does report significant dyspnea on exertion and occasionally shortness of breath at rest. PAST MEDICAL HISTORY: Notable for the above-mentioned colon cancer. He also has hypertension. PAST SURGICAL HISTORY: He has had the colon resection with ileostomy and an ileostomy reversal. He has knee surgery, shoulder surgery, and prostate surgery. FAMILY HISTORY: Unsure how his mother passed and he reports she was in her later years. His father of strokes in his 70s. SOCIAL HISTORY: Former smoker, who quit 30 years ago. Quit all alcohol 30 years ago. He is . He is full code. His , who is present with him would be his surrogate decision maker. ALLERGIES: NONE. CURRENT MEDICATIONS: 1. Lisinopril 10 mg daily. 2. Amlodipine 10 mg daily. PHYSICAL EXAMINATION: VITAL SIGNS: Temperature 97.4, pulse 80, respirations 18, O2 saturation 100% on room air, and blood pressure 134/75. GENERAL APPEARANCE: Awake and alert, pleasant, cooperative, in no distress. HEENT: PERRL. No OP lesions. NECK: Supple and symmetric with no lymphadenopathy, JVD, or carotid bruits. HEART: Regular rate and rhythm. No murmurs, gallops, or rubs. LUNGS: Clear to auscultation bilaterally. ABDOMEN: Soft, nontender, and nondistended. Positive bowel sounds. No masses. No organomegaly. EXTREMITIES: No cyanosis, clubbing, or edema. LABORATORY DATA: White count 9.1, hemoglobin 11.6, and platelets 164. Sodium 136, potassium 4.8, chloride 117, CO2 is 9, BUN 42, creatinine 2.34, GFR 27, glucose 112, calcium 8.8, and magnesium 1.9. LFTs normal. Albumin 3.8. IMAGING DATA: Chest x-ray is negative. CT brain with no acute processes. IMPRESSION AND PLAN: 1. Acute metabolic encephalopathy, likely due to dehydration. It seems to be better already with some fluid resuscitation. 2. Acute kidney injury, likely due to dehydration. We will hydrate and continue to follow. We will need to try to address the diarrhea situation as well. 3. 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 May need to consider more aggressive approach as he has been advised to use Imodium in the past. May need to consider some Questran. 4. Metabolic acidosis secondary to acute renal insufficiency. Should improve with hydration. 5. Macrocytic anemia. We will monitor with hydration, may need to consider some B vitamin testing. Job ID: [id number] [facility]
[2019-04-08] MEDS ORDERED: FLU VACC TS2019-20(65YR UP)/PF 180 MCG/0.5 ML SYRINGE IM ONE (09:00)
[2019-04-08] MEDS ORDERED: Prevnar 13-Val Conj/PF 0.5 ML SYRINGE IM ONE (09:00)
[2019-04-08] MEDS: Amlodipine 10 MG TAB PO SCH (09:43)
[2019-04-08] MEDS: Heparin 5,000 UNITS/ML VIAL SC SCH ×3 (09:44→21:16)
[2019-04-08] MEDS: Lisinopril 10 MG TAB PO SCH (09:45)
[2019-04-08] MEDS ORDERED: Cholestyramine/Aspartame 4 gm Packet PO SCH (13:00)
[2019-04-08] MEDS: Cholestyramine/Aspartame 4 gm Packet PO SCH (21:17)
[2019-04-08] MEDS: Acetaminophen 325 MG TAB PO PRN (21:18)
--- NOTE | 2019-04-08 23:10 | PDOC.HOSPP ---
- Subjective Encounter Date: 04/08/19 Subjective: Doing well. Feels much better. - Objective Vital Signs & Weight: Vital Signs (12 hours) Temp Pulse Resp BP Pulse Ox 04/08/19 21:00 97.9 F 73 19 121/76 100 04/08/19 17:01 98.2 F 67 18 126/82 96 04/08/19 11:10 97.4 F L 80 18 132/72 100 Weight Weight 176 lb I&O: 04/07/19 04/08/19 04/09/19 06:59 06:59 06:59 Intake Total 1660 Balance 1660 Result Diagrams: 04/08/19 05:23 04/08/19 05:23 Hospitalist ROS - Medication Medications: Active Medications Generic Name Dose Route Start Last Admin Trade Name Freq PRN Reason Stop Dose Admin Acetaminophen 650 mg 04/07/19 15:30 04/08/19 21:18 Tylenol PO 650 mg Q4H PRN Administration Headache/Fever/Mild Pain (1-3) Amlodipine Besylate 10 mg 04/08/19 09:00 04/08/19 09:43 Norvasc PO 10 mg DAILY SARAN Administration Cholestyramine Resin 1 gm 04/08/19 22:00 04/08/19 21:17 Questran Light PO 1 gm 1000,2200 SARAN Administration Heparin Sodium (Porcine) 5,000 units 04/07/19 21:00 04/08/19 21:16 Heparin SC 5,000 units TID SARAN Administration Sodium Chloride 1,000 mls @ 100 mls/hr 04/07/19 15:30 04/08/19 21:27 Normal Saline 0.9% IV 1,000 mls .Q10H SARAN Administration Lisinopril 10 mg 04/08/19 09:00 04/08/19 09:45 Zestril PO 10 mg DAILY SARAN Administration Loperamide HCl 2 mg 04/07/19 20:11 04/08/19 21:27 Imodium PO 2 mg PRN PRN Administration Diarrhea/Loose Stools - Exam General Appearance: NAD, awake alert Heart: RRR, no murmur, no gallops, no rubs, normal peripheral pulses Respiratory: CTAB, no wheezes, no rales, no ronchi, normal chest expansion, no tachypnea, normal percussion Gastrointestinal: soft, non-tender, non-distended, normal bowel sounds, no palpable masses, no hepatomegaly, no splenomegaly, no bruit Extremities: no cyanosis, no clubbing, no edema Skin: normal turgor Musculoskeletal: normal tone, normal strength, no muscle wasting Psychiatric: normal affect, normal behavior, A&O x 3 Hosp A/P (1) AZIZA (acute kidney injury) Code(s): N17.9 - ACUTE KIDNEY FAILURE, UNSPECIFIED Status: Acute (2) Dehydration Code(s): E86.0 - DEHYDRATION Status: Acute (3) Colon cancer Code(s): C18.9 - MALIGNANT NEOPLASM OF COLON, UNSPECIFIED Status: Acute (4) Metabolic acidosis Code(s): E87.2 - ACIDOSIS Status: Acute - Plan Continue IVF. Has not had a lot of UOP yet. Renal function looking better. Initiate questran light, low dose. Recheck labs in am. Discussed with patient's daughter. They think he is too weak to go home. Considering rehab. Patient and family contemplating moving him to [place] where his sons are. Will get PT, OT, CM consults. Discussed with Dr. Ritchie. Patient has additional chemo planned, but that may change in light of dispo.
[2019-04-09] MEDS: Acetaminophen 325 MG TAB PO PRN ×3 (04:19→20:47)
[2019-04-09] MEDS: Loperamide HCl 2 MG CAP PO PRN (04:26)
[2019-04-09 06:06] LABS: #Lymphocytes 1.8 thou/uL (1.20-3.40); #Monocytes 0.9 thou/uL (0.11-0.59); #Neutrophils 4.4 thou/uL (1.40-6.50); %Basophils 0.1 % (0.0-1.0); %Eosinophils 0.6 % (0.0-10.0); %Lymphocytes 25.3 % (21.0-51.0); %Neutrophils 61.8 % (42.0-75.0); Hemoglobin 8.5 g/dL (14.0-18.0); Mean Corpuscular HGB CONC 34.6 g/dL (32.0-36.0); Mean Corpuscular Hemoglobin 35.4 pg (27.0-31.0); Mean Platelet Volume 8.7 fL (7.4-10.4); Platelet Count 123 thou/uL (130-400)
[2019-04-09 06:23] LABS: Anion Gap 12 mmol/L (10-20); BUN (Urea Nitrogen) 30 mg/dL (8.4-25.7); Calc. Creatinine Clearance 48 mL/min (70-130); Calcium 8.1 mg/dL (7.8-10.44); Carbon Dioxide 10 mmol/L (23-31); Chloride 118 mmol/L (98-107); Estimated GFR-MDRD 52; Glucose 98 mg/dL (83-110); Potassium 3.3 mmol/L (3.5-5.1); Sodium 137 mmol/L (136-145)
--- NOTE | 2019-04-09 08:03 | RAD ---
LEFT FOREARM 2 VIEWS: HISTORY: Pain. 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 Marked arthrosis of the elbow joint with some deformity as well. There is some soft tis jaycob swelling at the wrist. The navicular bone is not adequately evaluated on this study. 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 No acute fracture or dislocatio n. POS: TPC
--- NOTE | 2019-04-09 08:05 | RAD ---
LEFT WRIST 3 VIEWS: HISTORY: Very severe arthrosis deformity of the radiocarpal joint and distal radial ulnar joint with the ulnar abutting the lunate bone. There are prominent hypertrophic osteophytosis changes as well as some ch ondrocalcinosis. No evidence for acute fracture. IMPRESSION: Severe arthrosis and deformity as above. If the patient's pain is related to recent trauma, consideration for a followup study in 1-2 weeks. POS: TPC
[2019-04-09] MEDS: Sodium Chloride 0.9% 1,000 ML IV SCH ×3 (08:30→23:04)
[2019-04-09] MEDS: Lisinopril 10 MG TAB PO SCH (08:30)
[2019-04-09] MEDS: Amlodipine 10 MG TAB PO SCH (08:30)
[2019-04-09] MEDS: Cholestyramine/Aspartame 4 gm Packet PO SCH ×2 (09:30→22:58)
[2019-04-09 14:10] LABS: Hemoglobin 8.3 g/dL (14.0-18.0)
[2019-04-09 16:20] VITALS: BMI 23.8
--- NOTE | 2019-04-09 21:38 | PDOC.HOSPP ---
- Subjective Encounter Date: 04/09/19 Subjective: Had pain in the left wrist and forearm area this morning. Thinks he may have been pulled up with that arm. Diarrhea has improved. Had only been up about 3 times during the night which is a vast improvement for him. Still very QUARLES. His did admit that she has seen bright red blood in the stool. Had mild epistaxis. - Objective Vital Signs & Weight: Vital Signs (12 hours) Temp Pulse Resp BP Pulse Ox 04/09/19 19:30 98.8 F 95 14 153/80 H 82 L 04/09/19 16:19 156/83 H 04/09/19 11:20 160/80 H Weight Admit Weight 180 lb 1.6 oz Weight 176 lb I&O: 04/08/19 04/09/19 04/10/19 06:59 06:59 06:59 Intake Total 1660 1400 1300 Balance 1660 1400 1300 Result Diagrams: 04/09/19 13:53 04/09/19 05:18 Hospitalist ROS - Medication Medications: Active Medications Generic Name Dose Route Start Last Admin Trade Name Freq PRN Reason Stop Dose Admin Acetaminophen 650 mg 04/07/19 15:30 04/09/19 20:47 Tylenol PO 650 mg Q4H PRN Administration Headache/Fever/Mild Pain (1-3) Amlodipine Besylate 10 mg 04/08/19 09:00 04/09/19 08:30 Norvasc PO 10 mg DAILY SARAN Administration Cholestyramine Resin 1 gm 04/08/19 22:00 04/09/19 09:30 Questran Light PO 1 gm 1000,2200 SARAN Administration Sodium Chloride 1,000 mls @ 100 mls/hr 04/07/19 15:30 04/09/19 17:53 Normal Saline 0.9% IV Not Given .Q10H SARAN Lisinopril 10 mg 04/08/19 09:00 04/09/19 08:30 Zestril PO 10 mg DAILY SARAN Administration Loperamide HCl 2 mg 04/07/19 20:11 04/09/19 04:26 Imodium PO 2 mg PRN PRN Administration Diarrhea/Loose Stools - Exam General Appearance: NAD, awake alert General - other findings: Pale Heart: RRR, no murmur, no gallops, no rubs, normal peripheral pulses Respiratory: CTAB, no wheezes, no rales, no ronchi, normal chest expansion, no tachypnea, normal percussion Gastrointestinal: soft, non-tender, non-distended, normal bowel sounds, no palpable masses, no hepatomegaly, no splenomegaly, no bruit Extremities: no cyanosis, no clubbing, no edema Skin: normal turgor Neurological: no focal deficits Musculoskeletal: generalized weakness Psychiatric: normal affect, normal behavior, A&O x 3 Hosp A/P (1) AZIZA (acute kidney injury) Code(s): N17.9 - ACUTE KIDNEY FAILURE, UNSPECIFIED Status: Acute (2) Dehydration Code(s): E86.0 - DEHYDRATION Status: Acute (3) Colon cancer Code(s): C18.9 - MALIGNANT NEOPLASM OF COLON, UNSPECIFIED Status: Acute (4) Metabolic acidosis Code(s): E87.2 - ACIDOSIS Status: Acute (5) Anemia Code(s): D64.9 - ANEMIA, UNSPECIFIED Status: Acute (6) Hematochezia Code(s): K92.1 - MELENA Status: Acute - Plan Renal function looking better. Continue IVF. Questran appears to have helped with diarrhea volume. Now more anemic and his reports seeing blood in his stool at times. Confirmed with the Onc clinic that his baseline hgb is over 11. May be dilutional, but given his pallor and blood in the stool, I am concerned. Off anticoag for DVT prophylaxis. Will follow hgb and consult GI. Dr. Ritchie made aware. Recheck labs in am. Discussed with patient's daughter and son today. They think he is too weak to go home. Considering rehab. Will likely do that locally. Will get PT, OT, CM consults. Discussed with Dr. Ritchie. Patient has additional chemo planned, but that may change in light of dispo.
[2019-04-10] MEDS: Sodium Chloride 0.9% 1,000 ML IV SCH ×3 (04:09→21:39)
[2019-04-10 06:23] LABS: Anion Gap 12 mmol/L (10-20); BUN (Urea Nitrogen) 23 mg/dL (8.4-25.7); Calc. Creatinine Clearance 57 mL/min (70-130); Calcium 8.2 mg/dL (7.8-10.44); Carbon Dioxide 12 mmol/L (23-31); Chloride 116 mmol/L (98-107); Estimated GFR-MDRD 63; Glucose 102 mg/dL (83-110); Potassium 3.5 mmol/L (3.5-5.1); Sodium 136 mmol/L (136-145)
[2019-04-10 06:25] LABS: Hemoglobin 7.6 g/dL (14.0-18.0); Hypochromia SLIGHT = 6-15 cells (100X) (0-5/hpf); Lymphocytes 23 % (21-51); MDiff Complete? YES; Macrocytosis SLIGHT = 6-15 cells (100X) (0-5/hpf); Mean Corpuscular HGB CONC 34.4 g/dL (32.0-36.0); Mean Corpuscular Hemoglobin 35.4 pg (27.0-31.0); Mean Platelet Volume 9.6 fL (7.4-10.4); Monocytes 8 % (0-10); Neutrophil 69 % (42-75); Platelet Count 111 thou/uL (130-400); Platelet Morphology Comment Appears Decreased; Red Blood Cell (RBC) Count 2.14 mill/uL (4.70-6.10); White Blood Cell (WBC) Count 7.3 thou/uL (4.8-10.8)
[2019-04-10] MEDS: Amlodipine 10 MG TAB PO SCH (08:38)
[2019-04-10] MEDS: Lisinopril 10 MG TAB PO SCH (08:38)
[2019-04-10] MEDS: Acetaminophen 325 MG TAB PO PRN ×3 (08:42→20:39)
[2019-04-10] MEDS: Cholestyramine/Aspartame 4 gm Packet PO SCH ×2 (08:45→21:43)
[2019-04-10] MEDS: Loperamide HCl 2 MG CAP PO PRN ×2 (12:20→16:57)
[2019-04-10 14:46] LABS: Hemoglobin 8.2 g/dL (14.0-18.0); Mean Corpuscular HGB CONC 33.8 g/dL (32.0-36.0); Mean Corpuscular Hemoglobin 35.2 pg (27.0-31.0); Mean Platelet Volume 9.2 fL (7.4-10.4); Platelet Count 108 thou/uL (130-400); RBC Distribution Width 17.1 % (11.5-14.5); Red Blood Cell (RBC) Count 2.32 mill/uL (4.70-6.10); White Blood Cell (WBC) Count 7.9 thou/uL (4.8-10.8)
[2019-04-10 15:05] LABS: Anisocytosis SLIGHT = 6-15 cells (100X) (0-5/hpf); Band 11 % (5-11); Lymphocytes 25 % (21-51); MDiff Complete? YES; Macrocytosis SLIGHT = 6-15 cells (100X) (0-5/hpf); Monocytes 8 % (0-10); Neutrophil 54 % (42-75); Ovalocytes SLIGHT = 2-5 cells (100X) (0-1/hpf); Platelet Morphology Comment Appears Decreased; Polychromasia SLIGHT = 2-3 cells (100X) (0-2/hpf); Reactive Lymphocytes 2 % (0-10); Schistocytes SLIGHT = 2-5 cells (100X) (0-1/hpf)
--- NOTE | 2019-04-10 17:56 | CON ---
DATE OF CONSULTATION: 04/10/2019 REASON FOR CONSULTATION: Anemia, diarrhea. CONSULTING PROVIDER: Zhao Medeiros MD HISTORY OF PRESENT ILLNESS: The patient is an 83-year-old male with past medical history of colon cancer with metastatic disease status post subtotal colectomy and chemotherapy, atrial fibrillation on warfarin and hypertension, initially presenting with weakness and diarrhea. He states that as part of the treatment for his metastatic colon cancer he was placed on chemotherapy in 11/2018. Since that time period, he has had progressively worsening diarrhea to the point where for the last 2 to 3 weeks he has been having approximately 5 to 20 liquid bowel movements per day. With worsening of this diarrhea, it is not associated with any other additional symptoms nor has been coinciding with any additional medications, (although the patient does state that with the recent round of chemotherapy, his diarrhea has worsened a little bit as well). As an outpatient, the patient was placed on antibiotic therapy with a mild improvement in his diarrhea, but the diarrhea returned upon completion of the antibiotics. With the increased diarrhea, he began progressively weak and altered (per family) and experienced a fall at home, prompting his admission to the [facility] ER for further evaluation. While in the ER, he was resuscitated with IV fluids and showed a significant improvement in both his functional and mental status. However, during the course of this hospitalization, the patient has been noted to have a significant drop in both his hemoglobin and hematocrit, concerning for the presence of bleeding. Upon conferring with the patient, he denies any evidence of hematemesis or hematochezia; however, he states that he has been having intermittent dark black stools that have been present for the last few weeks, that were liquid in nature, but it is unclear if this was unprovoked or coinciding with the administration of Pepto-Bismol as an outpatient. Of note, he was recently placed on Megestrol as part of an appetite stimulant by his oncologist within the last 1 to 2 weeks. Otherwise, the patient denies any nausea, vomiting, fevers, chills, hematemesis, hematochezia, abdominal pain, odynophagia, dysphagia, or constipation. REVIEW OF SYSTEMS: A 10-category review of systems was obtained with all responses negative except for the pertinent positives as listed in HPI. PAST MEDICAL HISTORY: As per HPI. PAST SURGICAL HISTORY: 1. Colon resection with subtotal colectomy and rectal cuff placement with an end-to-side ileorectal anastomosis. 2. Knee surgery. 3. Shoulder surgery. 4. Prostate surgery. FAMILY HISTORY: Denies any GI malignancies. SOCIAL HISTORY: Denies any tobacco, alcohol, or illicit drug use, although he was a former smoker. OUTPATIENT MEDICATIONS: Reviewed. ALLERGIES: NO KNOWN DRUG ALLERGIES. PHYSICAL EXAMINATION: VITAL SIGNS: Temperature 97.7, pulse 76, blood pressure 153/75, respiratory rate 18, and saturating 100% on room air. GENERAL: The patient was lying in bed, in no acute distress. Alert and oriented x4. HEENT: Normocephalic and atraumatic. NECK: Supple. No JVD or scleral icterus noted. CARDIOVASCULAR: Regular rate and rhythm with no discernable murmurs, gallops, or rubs (although distant heart sounds with barrel chest noted). RESPIRATORY: Clear to auscultation bilaterally with no discernable wheezes or rales. ABDOMEN: Normoactive bowel sounds. Soft, nontender, and nondistended. EXTREMITIES: No cyanosis, clubbing, or edema. LABORATORY DATA: CBC with a white blood cell count of 7.3, hemoglobin 7.6, hematocrit 22, and platelets 111. Chemistry with a sodium of 136, potassium 3.5, chloride 116, CO2 of 12, BUN 23, creatinine 1.11, and glucose 102. IMAGING DATA: No current GI imaging is available for review. ASSESSMENT AND PLAN: The patient is an 83-year-old male with past medical history of colon cancer with metastatic disease status post chemotherapy and subtotal colectomy with ileorectal anastomosis, atrial fibrillation on anticoagulation (warfarin), and hypertension, presenting with diarrhea and anemia. 1. Anemia: The patient was diagnosed with colon cancer in 04/2018 during colonoscopy and was ultimately sent for surgery, for which he underwent a subtotal colectomy with ileorectal anastomosis. However, surveillance of the patient yielded the presence of metastatic disease to the liver, for which the patient was placed on chemotherapy in 11/2018, with a recent change in his chemotherapy regimen within the last month or 2. With the increased diarrhea, the patient has been experiencing since the onset of chemotherapy. It prompted him to seek healthcare assistance in the [facility] ER. While in the ER, he was noted to have an anemia that was macrocytic in nature. Serological testing to further characterize this anemia showed no deficiency in B12 or folate. At this time, his macrocytic anemia is most likely due to chemotherapy administration. However, during the course of this hospitalization, he has also been noted to see a decreasing hemoglobin and hematocrit when compared to baseline. He denies any evidence of overt bleeding, although has had some questionable episodes of black-colored stools as an outpatient prior to admission (may be associated with Pepto-Bismol administration). At this time, the origin of his anemia is largely unknown, but the differential could include upper gastrointestinal bleed with esophagitis, gastritis, duodenitis, peptic ulcer disease, arteriovenous malformation, Dieulafoy lesion, side effect from chemotherapy with mucositis, bone marrow suppression from chemotherapy, and/or gastrointestinal malignancy. Recommendations: a. Would continue to trend the patient's hemoglobin and hematocrit and transfuse as necessary to maintain the hemoglobin and hematocrit of 7/21. b. Continue to monitor clinically for signs of active gastrointestinal bleeding. c. Would make the patient n.p.o. at midnight in anticipation for esophagogastroduodenoscopy tomorrow. d. We will plan for intraluminal evaluation of the upper gastrointestinal tract tomorrow with upper endoscopy, colonoscopy or examination of the rectal anastomosis is not indicated at this time given the degree of blood loss and lack of overt hematochezia. e. If the upper endoscopy is normal, I would recommend further modalities for localization of anemia including tagged red cell scan and/or CT of the abdomen/pelvis for possible retroperitoneal bleed. f. Would obtain an INR for this patient given a recent evaluation with supratherapeutic INR. 2. Diarrhea: The patient is presenting with progressively worsening diarrhea since the onset of chemotherapy in 11/2018. Currently having approximately 5 to 20 bowel movements in a 24-hour time period with resultant dehydration and the sequelae of which including altered mental status and weakness. He has responded well to more conservative management thus far including IV fluid support in addition to being placed on cholestyramine, which has decreased the frequency of his bowel movements over the last 24 hours. Infectious stool studies so far have been negative for an overt pathogen and more likely is a side effect related to his chemotherapy given that it coincided with onset and worsening with recent change in his chemotherapy regimen. At this time, it could include ulceration and/or inflammation of the upper gastrointestinal tract and small bowel secondary to chemotherapy use. Recommendations: a. Would continue to monitor the patient clinically for improvement in his diarrhea. b. Would consider supplementation with fiber in an attempt to bulk his stools and decrease bowel movement frequency. c. Agree with continuation of the cholestyramine. d. Intraluminal evaluation with the upper endoscopy as above. We will continue to follow. Please call with any questions. Job ID: [id number]
[2019-04-10] MEDS: traMADol HCl 50 MG TAB PO PRN (20:39)
--- NOTE | 2019-04-10 21:21 | PDOC.HOSPP ---
- Subjective Encounter Date: 04/10/19 Subjective: Feels well. No complaints. Continues to have had improvement with the diarrhea on questran. - Objective Vital Signs & Weight: Vital Signs (12 hours) Temp Pulse Resp BP Pulse Ox 04/10/19 19:44 98 04/10/19 19:28 99.4 F 83 20 148/80 H 98 Weight Admit Weight 180 lb 1.6 oz Weight 176 lb I&O: 04/09/19 04/10/19 04/11/19 06:59 06:59 06:59 Intake Total 1400 2800 2200 Output Total 6 Balance 1400 2794 2200 Result Diagrams: 04/10/19 14:34 04/10/19 05:17 Hospitalist ROS - Medication Medications: Active Medications Generic Name Dose Route Start Last Admin Trade Name Freq PRN Reason Stop Dose Admin Acetaminophen 650 mg 04/07/19 15:30 04/10/19 20:39 Tylenol PO 650 mg Q4H PRN Administration Headache/Fever/Mild Pain (1-3) Amlodipine Besylate 10 mg 04/08/19 09:00 04/10/19 08:38 Norvasc PO 10 mg DAILY SARAN Administration Cholestyramine Resin 1 gm 04/08/19 22:00 04/10/19 08:45 Questran Light PO 1 gm 1000,2200 SARAN Administration Sodium Chloride 1,000 mls @ 100 mls/hr 04/07/19 15:30 04/10/19 13:48 Normal Saline 0.9% IV 1,000 mls .Q10H SARAN Administration Lisinopril 10 mg 04/08/19 09:00 04/10/19 08:38 Zestril PO 10 mg DAILY SARAN Administration Loperamide HCl 2 mg 04/07/19 20:11 04/10/19 16:57 Imodium PO 2 mg PRN PRN Administration Diarrhea/Loose Stools Tramadol HCl 50 mg 04/10/19 13:49 04/10/19 20:39 Ultram PO 50 mg Q6H PRN Administration SEVERE PAIN - Exam General Appearance: NAD, awake alert Heart: RRR, no murmur, no gallops, no rubs, normal peripheral pulses Respiratory: CTAB, no wheezes, no rales, no ronchi, normal chest expansion, no tachypnea, normal percussion Gastrointestinal: soft, non-tender, non-distended, normal bowel sounds, no palpable masses, no hepatomegaly, no splenomegaly, no bruit Extremities: no cyanosis, no clubbing, no edema Skin: normal turgor Musculoskeletal: normal tone, normal strength, no muscle wasting Psychiatric: normal affect, normal behavior, A&O x 3 Hosp A/P (1) AZIZA (acute kidney injury) Code(s): N17.9 - ACUTE KIDNEY FAILURE, UNSPECIFIED Status: Acute (2) Dehydration Code(s): E86.0 - DEHYDRATION Status: Acute (3) Colon cancer Code(s): C18.9 - MALIGNANT NEOPLASM OF COLON, UNSPECIFIED Status: Acute (4) Metabolic acidosis Code(s): E87.2 - ACIDOSIS Status: Acute (5) Anemia Code(s): D64.9 - ANEMIA, UNSPECIFIED Status: Acute (6) Hematochezia Code(s): K92.1 - MELENA Status: Acute - Plan Renal function looking better. Continue IVF. Back to normal. Questran appears to have helped with diarrhea volume. Anemia is slightly worse today. Repeat in the afternoon looks more stable. Appreciate GI consult. Upper endoscopy in am. Recheck labs in am. Discussed with patient's daughter and son. They think he is too weak to go home. Considering rehab. Will likely do that locally. PT, OT, CM consults. Discussed with Dr. Ritchie. Patient has additional chemo planned, but that may change in light of dispo.
[2019-04-11 05:50] LABS: Prothrombin Time 98.6 SEC (12.0-14.7)
[2019-04-11 06:08] LABS: ALT (SGPT) 11 U/L (8-55); AST (SGOT) 13 U/L (5-34); Albumin 2.5 g/dL (3.4-4.8); Alkaline Phosphatase 41 U/L (40-110); Anion Gap 9 mmol/L (10-20); BUN (Urea Nitrogen) 17 mg/dL (8.4-25.7); Bilirubin, Total 0.6 mg/dL (0.2-1.2); Calc. Creatinine Clearance 61 mL/min (70-130); Calcium 7.9 mg/dL (7.8-10.44); Carbon Dioxide 15 mmol/L (23-31); Chloride 117 mmol/L (98-107); Estimated GFR-MDRD 69; Globulin 2.4 g/dL (2.4-3.5); Glucose 107 mg/dL (83-110); Iron 18 ug/dL (65-175); Iron Binding Capacity, Total 160 mcg/dL (261-462); Potassium 3.3 mmol/L (3.5-5.1); Protein, Total 4.9 g/dL (5.8-8.1); Sodium 138 mmol/L (136-145)
[2019-04-11 06:27] LABS: Hemoglobin 6.6 g/dL (14.0-18.0); INR-International Normal Ratio 13.4; Mean Corpuscular HGB CONC 34.6 g/dL (32.0-36.0); Mean Corpuscular Hemoglobin 35.7 pg (27.0-31.0); Platelet Count 96 thou/uL (130-400); RBC Distribution Width 16.9 % (11.5-14.5); Red Blood Cell (RBC) Count 1.84 mill/uL (4.70-6.10); White Blood Cell (WBC) Count 5.8 thou/uL (4.8-10.8)
[2019-04-11 06:28] LABS: Band 2 % (5-11); Lymphocytes 31 % (21-51); MDiff Complete? YES; Monocytes 26 % (0-10); Neutrophil 41 % (42-75); Platelet Morphology Comment Appears Decreased
[2019-04-11] MEDS ORDERED: Phytonadione 10 MG/ML AMP SLOW IVP SCH (07:00)
[2019-04-11] MEDS ORDERED: Phytonadione 10 MG in Sodium Chloride 0.9% 50 ML IVPB SCH (07:30)
[2019-04-11 07:46] LABS: Prothrombin Time 88.1 SEC (12.0-14.7)
[2019-04-11 07:54] LABS: INR-International Normal Ratio 11.6; PTT 150.3 SEC (22.9-36.1)
[2019-04-11 08:54] LABS: PTT - Undiluted 148.2 SEC (22.9-36.1)
[2019-04-11 09:26] LABS: PTT 1:1 Mix 40.7 SEC
[2019-04-11] MEDS: Cholestyramine/Aspartame 4 gm Packet PO SCH ×2 (09:35→21:34)
[2019-04-11] MEDS: Citrucel 500 MG TAB PO SCH (09:37)
[2019-04-11 11:06] LABS: PT 1:1 37C-90 min. Incubation 15.7 SEC
[2019-04-11 11:25] LABS: PTT 1:1 37C/90 MIN Incubation 44.9 SEC
[2019-04-11 13:02] LABS: PT - Undiluted 89.2 SEC (12.0-14.7)
[2019-04-11] MEDS: Acetaminophen 325 MG TAB PO PRN ×2 (13:09→21:42)
[2019-04-11] MEDS: Amlodipine 10 MG TAB PO SCH (13:39)
[2019-04-11] MEDS: Lisinopril 10 MG TAB PO SCH (13:40)
[2019-04-11] MEDS: Sodium Chloride 0.9% 1,000 ML IV SCH ×2 (13:42→21:43)
[2019-04-11 14:03] LABS: INR-International Normal Ratio 2.1; PTT 56.9 SEC (22.9-36.1); Prothrombin Time 23.2 SEC (12.0-14.7)
--- NOTE | 2019-04-11 18:36 | PRG ---
DATE OF SERVICE: 04/11/2019 REASON FOR CONSULTATION: Anemia, diarrhea. SUBJECTIVE: The patient states that he was doing well today with no acute events or problems overnight. He does continue to have diarrhea characterized as having approximately 2 semi-solid bowel movements over the last 12 to 24 hours. Otherwise, he denies any nausea, vomiting, fevers, chills, hematemesis, melena, hematochezia, abdominal pain, dysphagia, or odynophagia. OBJECTIVE: VITAL SIGNS: Temperature 98.4, pulse 77, blood pressure 171/74, respiratory rate 16, saturating 99% on room air. GENERAL: The patient was lying in bed, in no acute distress. Alert and oriented x4. CARDIOVASCULAR: Regular rate and rhythm. RESPIRATORY: Clear to auscultation bilaterally. ABDOMEN: Normoactive bowel sounds. Soft, nontender, nondistended. EXTREMITIES: No cyanosis, clubbing, or edema. LABORATORY DATA: CBC with a white blood cell count of 5.8, hemoglobin 6.6, hematocrit 19, platelets 96. Chemistry with sodium 138, potassium 3.3, chloride 117, CO2 of 15, BUN 17, creatinine 1.03, glucose 107. INR 13.4. Iron 18, ferritin 612, TIBC 160. IMAGING DATA: No current GI imaging is available for review. ASSESSMENT AND PLAN: The patient is an 83-year-old male with past medical history of colon cancer with metastatic disease, status post chemotherapy and subtotal colectomy with ileorectal anastomosis; atrial fibrillation, on anticoagulation with warfarin; hypertension; presenting with diarrhea and anemia secondary to coagulopathy. Anemia: The patient is presenting with downtrending H and H during the course of this admission with initial labs consistent with a macrocytic anemia. Further serological testing noted a normal B12 and folate and his iron indices are more indicative of anemia of chronic disease rather than an iron deficiency anemia. However, the patient does have a significantly elevated INR today of 13.4, which could then generate bleeding from any potential source secondary to severe anticoagulant and anticoagulation. At this time, it is unknown if the patient is bleeding from a GI source or merely oozing from mucosal surfaces or may even have a retroperitoneal bleed generating his decreased H and H. In any case, his coagulopathy needs to be corrected prior to evaluation via any modality. Recommendations: 1. Would continue to trend the patient's H and H and transfuse as necessary to maintain an H and H of 7/. 2. Continue to monitor clinically for signs of active GI bleeding. 3. Would correct the coagulopathy with FFP and oral vitamin K. 4. Given the lack of overt evidence of GI bleeding, one could consider further localization of anemia with either a tagged red cell scan or CT of the abdomen/pelvis for possible retroperitoneal bleed. 5. Would hold on upper endoscopy for now in light of severe coagulopathy and increased risk of bleeding with instrumentation. Diarrhea: The patient is also presenting with worsening diarrhea prior to admission that seems to be responding to cholestyramine administration. Given his significantly elevated INR and recent treatment with chemotherapy, his diarrhea could be either due to the presence of blood within the GI tract (blood is an excellent cathartic) or a side effect of his recent bouts of chemotherapy or combination of the two. Currently, doing well with the cholestyramine with only 2 semi-solid bowel movements over the last 24 hours. At this time, the differential could include oozing of blood from any mucosal surfaces secondary to supratherapeutic INR/coagulopathy to side effect from chemotherapy administration. Medication-induced diarrhea (less likely) and/or GI neoplasm. Recommendations: 1. We will continue to monitor the patient for response to cholestyramine and fiber supplementation. 2. We will continue both fiber supplementation and cholestyramine given decreased frequency of bowel movements. 3. Could consider upper endoscopy when the patient's coagulopathy has been corrected. We will continue to follow. Please call with any questions. Job ID: [id number]
--- NOTE | 2019-04-11 22:56 | PDOC.HOSPP ---
- Subjective Encounter Date: 04/11/19 Subjective: Feels well. No complaints. - Objective Vital Signs & Weight: Vital Signs (12 hours) Temp Pulse Pulse Resp BP BP BP 04/11/19 20:00 04/11/19 19:28 97.5 F L 69 17 160/70 H 04/11/19 17:30 160/70 H 04/11/19 16:00 98.4 F 72 16 171/74 H 04/11/19 13:50 97.5 F L 69 16 147/77 H 04/11/19 13:40 158/74 H 04/11/19 13:39 77 158/74 H 04/11/19 13:35 97.3 F L 67 16 158/74 H 04/11/19 12:50 97.9 F 66 16 145/63 H 04/11/19 11:20 98.4 F 69 16 131/54 L 04/11/19 11:05 98.2 F 72 16 136/77 Pulse Ox 04/11/19 20:00 97 04/11/19 19:28 97 04/11/19 17:30 04/11/19 16:00 04/11/19 13:50 04/11/19 13:40 04/11/19 13:39 04/11/19 13:35 04/11/19 12:50 04/11/19 11:20 04/11/19 11:05 Weight Admit Weight 180 lb 1.6 oz Weight 176 lb I&O: 04/10/19 04/11/19 04/12/19 06:59 06:59 06:59 Intake Total 2800 2200 [id number] Output Total 6 Balance 2794 2200 [id number] Result Diagrams: 04/11/19 05:27 04/11/19 05:28 Hospitalist ROS - Medication Medications: Active Medications Generic Name Dose Route Start Last Admin Trade Name Freq PRN Reason Stop Dose Admin Acetaminophen 650 mg 04/07/19 15:30 04/11/19 21:42 Tylenol PO 650 mg Q4H PRN Administration Headache/Fever/Mild Pain (1-3) Amlodipine Besylate 10 mg 04/08/19 09:00 04/11/19 13:39 Norvasc PO 10 mg DAILY SARAN Administration Cholestyramine Resin 1 gm 04/08/19 22:00 04/11/19 21:34 Questran Light PO 1 gm 1000,2200 SARAN Administration Sodium Chloride 1,000 mls @ 75 mls/hr 04/10/19 21:21 04/11/19 21:43 Normal Saline 0.9% IV 1,000 mls .[id number] SARAN Administration Lisinopril 10 mg 04/08/19 09:00 04/11/19 13:40 Zestril PO 10 mg DAILY SARAN Administration Loperamide HCl 2 mg 04/07/19 20:11 04/10/19 16:57 Imodium PO 2 mg PRN PRN Administration Diarrhea/Loose Stools Methylcellulose 500 mg 04/11/19 09:00 04/11/19 09:37 Citrucel PO 500 mg DAILY SARAN Administration Tramadol HCl 50 mg 04/10/19 13:49 04/10/19 20:39 Ultram PO 50 mg Q6H PRN Administration SEVERE PAIN - Exam General Appearance: NAD, awake alert General - other findings: pale Heart: RRR, no murmur, no gallops, no rubs, normal peripheral pulses Respiratory: CTAB, no wheezes, no rales, no ronchi, normal chest expansion, no tachypnea, normal percussion Gastrointestinal: soft, non-tender, non-distended, normal bowel sounds, no palpable masses, no hepatomegaly, no splenomegaly, no bruit Extremities: no cyanosis, no clubbing, no edema Skin: normal turgor, no lesions, no rashes Musculoskeletal: normal tone, normal strength, no muscle wasting Hosp A/P (1) AZIZA (acute kidney injury) Code(s): N17.9 - ACUTE KIDNEY FAILURE, UNSPECIFIED Status: Acute (2) Dehydration Code(s): E86.0 - DEHYDRATION Status: Acute (3) Colon cancer Code(s): C18.9 - MALIGNANT NEOPLASM OF COLON, UNSPECIFIED Status: Acute (4) Metabolic acidosis Code(s): E87.2 - ACIDOSIS Status: Acute (5) Anemia Code(s): D64.9 - ANEMIA, UNSPECIFIED Status: Acute (6) Hematochezia Code(s): K92.1 - MELENA Status: Acute (7) Supratherapeutic INR Code(s): R79.1 - ABNORMAL COAGULATION PROFILE Status: Acute - Plan Renal function looking better. Back to normal. Questran appears to have helped with diarrhea volume. Anemia is worse. INR was very elevated. Clarified with patient that he is on warfarin at home. Apparently it was for afib. He has not had afib until today. He has seen Dr. Zamarripa and says she was not clear that he had afib. He struggles to keep it therapeutic. He was recently on antibiotics. May have had an adverse effect on the INR. Will give FFP, Vitamin K. Transfuse PRBC's. Will likely need to be off the anticoagulation or a newer agent. Recheck labs in am. Discussed with patient's daughter and son. They think he is too weak to go home. Considering rehab. Will likely do that locally. PT, OT, CM consults. Discussed with Dr. Ritchie. Patient has additional chemo planned, but that may change in light of dispo.
[2019-04-12 05:49] LABS: INR-International Normal Ratio 1.4; PTT 41.5 SEC (22.9-36.1); Prothrombin Time 16.9 SEC (12.0-14.7)
[2019-04-12 06:33] LABS: White Blood Cell (WBC) Count 4.4 thou/uL (4.8-10.8)
[2019-04-12 07:03] LABS: Hemoglobin 7.5 g/dL (14.0-18.0); Mean Corpuscular Hemoglobin 34.8 pg (27.0-31.0); Mean Platelet Volume 8.6 fL (7.4-10.4); Platelet Count 106 thou/uL (130-400); RBC Distribution Width 16.8 % (11.5-14.5); Red Blood Cell (RBC) Count 2.15 mill/uL (4.70-6.10)
--- NOTE | 2019-04-12 07:20 | EKG ---
Test Reason : Blood Pressure : / mmHG Vent. Rate : 092 BPM Atrial Rate : 097 BPM P-R Int : 000 ms QRS Dur : 096 ms QT Int : 344 ms P-R-T Axes : 000 -58 053 degrees QTc Int : 425 ms Atrial fibrillation with premature ventricular or aberrantly conducted complexes Left anterior fascicular block Nonspecific ST abnormality Abnormal ECG Confirmed by DR. Aleta SILVA ([id number]) on 04/12/2019 7:19:47 AM Referred By: KEVIN Confirmed By:DR. Aleta SILVA
[2019-04-12] MEDS: Amlodipine 10 MG TAB PO SCH (09:37)
[2019-04-12] MEDS: Citrucel 500 MG TAB PO SCH (09:37)
[2019-04-12] MEDS: Lisinopril 10 MG TAB PO SCH (09:37)
[2019-04-12] MEDS: Cholestyramine/Aspartame 4 gm Packet PO SCH ×2 (09:38→20:53)
[2019-04-12 10:28] LABS: Band 5 % (5-11); Eosinophils 2 % (0-10); Lymphocytes 38 % (21-51); MDiff Complete? YES; Monocytes 16 % (0-10); Neutrophil 39 % (42-75); Platelet Morphology Comment Appears Decreased; Polychromasia SLIGHT = 2-3 cells (100X) (0-2/hpf); Schistocytes SLIGHT = 2-5 cells (100X) (0-1/hpf); Tear Drops SLIGHT = 2-5 cells (100X) (0-1/hpf)
[2019-04-12] MEDS: Sodium Chloride 0.9% 1,000 ML IV SCH (12:15)
--- NOTE | 2019-04-12 15:15 | PDOC.HOSPP ---
- Subjective Encounter Date: 04/12/19 Subjective: Feels better today. Has been up and ambulating and was less SOB. Denies complaints. - Objective Vital Signs & Weight: Vital Signs (12 hours) Temp Pulse Resp BP BP Pulse Ox 04/12/19 12:08 97.4 F L 73 20 159/63 H 99 04/12/19 09:37 69 142/67 H 04/12/19 08:00 98.2 F 69 20 142/67 H 100 04/12/19 04:00 98.3 F 63 18 154/72 H 99 Weight Admit Weight 180 lb 1.6 oz Weight 176 lb I&O: 04/11/19 04/12/19 04/13/19 06:59 06:59 06:59 Intake Total 2200 [id number] 240 Balance 2200 [id number] 240 Result Diagrams: 04/12/19 06:17 04/11/19 05:28 Hospitalist ROS - Medication Medications: Active Medications Generic Name Dose Route Start Last Admin Trade Name Freq PRN Reason Stop Dose Admin Acetaminophen 650 mg 04/07/19 15:30 04/11/19 21:42 Tylenol PO 650 mg Q4H PRN Administration Headache/Fever/Mild Pain (1-3) Amlodipine Besylate 10 mg 04/08/19 09:00 04/12/19 09:37 Norvasc PO 10 mg DAILY SARAN Administration Lisinopril 10 mg 04/08/19 09:00 04/12/19 09:37 Zestril PO 10 mg DAILY SARAN Administration Loperamide HCl 2 mg 04/07/19 20:11 04/10/19 16:57 Imodium PO 2 mg PRN PRN Administration Diarrhea/Loose Stools Methylcellulose 500 mg 04/11/19 09:00 04/12/19 09:37 Citrucel PO 500 mg DAILY SARAN Administration Tramadol HCl 50 mg 04/10/19 13:49 04/10/19 20:39 Ultram PO 50 mg Q6H PRN Administration SEVERE PAIN - Exam General Appearance: NAD, awake alert Neck: supple, symmetric, no JVD, no thyromegaly, no lymphadenopathy, no carotid bruit Heart: no murmur, no gallops, no rubs, irregular Respiratory: CTAB, no wheezes, no rales, no ronchi, normal chest expansion, no tachypnea, normal percussion Gastrointestinal: soft, non-tender, non-distended, normal bowel sounds, no palpable masses, no hepatomegaly, no splenomegaly, no bruit Extremities: no cyanosis, no clubbing, no edema Skin: normal turgor Neurological: no focal deficits Musculoskeletal: normal tone, generalized weakness Hosp A/P (1) AZIZA (acute kidney injury) Code(s): N17.9 - ACUTE KIDNEY FAILURE, UNSPECIFIED Status: Acute (2) Dehydration Code(s): E86.0 - DEHYDRATION Status: Acute (3) Colon cancer Code(s): C18.9 - MALIGNANT NEOPLASM OF COLON, UNSPECIFIED Status: Acute (4) Metabolic acidosis Code(s): E87.2 - ACIDOSIS Status: Acute (5) Anemia Code(s): D64.9 - ANEMIA, UNSPECIFIED Status: Acute (6) Hematochezia Code(s): K92.1 - MELENA Status: Acute (7) Supratherapeutic INR Code(s): R79.1 - ABNORMAL COAGULATION PROFILE Status: Acute - Plan Renal function looking better. Back to normal. Questran appears to have helped with diarrhea volume. Now that the bleeding issue is resolved, increase the dose of Questran. Continue Fiber supplementation per GI. Anemia better INR was very elevated. He was recently on antibiotics. May have had an adverse effect on the INR. Will likely need to be off the anticoagulation or a newer agent. He should discuss this with Dr. Durham and Dr. Zamarripa on follow up. Recheck labs in am. Discussed with patient's daughter and son. They think he is too weak to go home. Considering rehab. Will likely do that locally. PT, OT, CM consults. Discussed with CM. Sounds like they are looking at [facility]. Discussed with Dr. Ritchie. Patient has additional chemo planned, but that may change in light of dispo.
[2019-04-12] MEDS: traMADol HCl 50 MG TAB PO PRN (18:12)
--- NOTE | 2019-04-12 19:14 | PRG ---
DATE OF SERVICE: 04/12/2019 REASON FOR CONSULTATION: Anemia. SUBJECTIVE: Today, the patient states that he had increased frequency of bowel movements having approximately 5 to 6 semi-solid to liquid bowel movements per day. However, he did not have any episodes of hematemesis, melena, or hematochezia associated with these bowel movements. Otherwise, he states he is feeling much better when compared to on admission. Currently, he denies any nausea, vomiting, fevers, chills, abdominal pain, dysphagia, or odynophagia. OBJECTIVE: VITAL SIGNS: Temperature 97.2, pulse 64, blood pressure 158/65, respiratory rate 20, and saturating 99% on room air. GENERAL: The patient was lying in bed, in no acute distress. Alert and oriented x4. CARDIOVASCULAR: Regular rate and rhythm. RESPIRATORY: Clear to auscultation bilaterally. ABDOMEN: Normoactive bowel sounds. Soft, nontender, and nondistended. EXTREMITIES: No cyanosis, clubbing, or edema. LABORATORY DATA: CBC with a white blood cell count of 4.4, hemoglobin 7.5, hematocrit 22.1, and platelets 106. INR 1.4. Chemistry with a sodium of 138, potassium 3.3, chloride 117, CO2 of 15, BUN 17, creatinine 1.03, glucose 107, AST 13, ALT 11, alkaline phosphatase 41, and total bilirubin 0.6. Iron 18, ferritin 612, and TIBC 160. IMAGING DATA: No current GI imaging is available for review. ASSESSMENT AND PLAN: The patient is an 83-year-old male with past medical history of colon cancer with metastatic disease, status post chemotherapy and subtotal colectomy with ileorectal anastomosis. Atrial fibrillation on anticoagulation with warfarin and supratherapeutic levels on admission and hypertension, presenting with diarrhea and anemia, most likely secondary to coagulopathy. Anemia/coagulopathy: The patient initially presented with downtrending H and H during the course of this admission with a macrocytic component to his anemia. Further characterization of his anemia with iron indices is more indicative of anemia of chronic disease rather than an iron deficiency anemia. However, he did have a significantly elevated INR of 13.4, which could then generate bleeding from any mucosal surface and at this point, is the more likely reasons why his anemia was downtrending. However, he does continue to have diarrhea and his H and H did downtrend somewhat when compared to yesterday concerning for continued oozing from a mucosal surface. Given the lack of hematochezia with a significantly elevated INR, a colonic/distal ileum origin is unlikely, but rather upper endoscopy may yield a possible bleeding/diarrhea source. RECOMMENDATIONS 1. We would continue to trend the patient's H and H and transfuse as necessary to maintain an H and H of 7/21. 2. Continue to monitor clinically for signs of active GI bleeding. 3. Please make the patient n.p.o. at midnight in anticipation of ERCP tomorrow for intraluminal evaluation and possible small-bowel biopsies. 4. Diarrhea and/or anemia. 5. If the EGD is negative, and the patient still continues to have a downtrending H and H, one could consider a tagged red cell scan for further localization. Diarrhea: The patient is also presenting with worsening diarrhea that has been present since November of 2018 after starting chemotherapy related to his metastatic colonic adenocarcinoma. He had been doing well on cholestyramine, but experienced worsening of symptoms over the last 24 hours. At this time, it is unclear if this is related to possible mucositis related to chemotherapy administration or if it is from active oozing of blood from a supratherapeutic INR. In any case, intraluminal evaluation with small-bowel biopsies may be indicated. RECOMMENDATIONS 1. We would continue the patient on cholestyramine and fiber supplementation. 2. We will plan for upper endoscopy tomorrow for intraluminal evaluation and small bowel biopsies at that time for anemia/diarrhea. We will continue to follow. Please call with any questions. Job ID: [id number]
[2019-04-13] MEDS: Loperamide HCl 2 MG CAP PO PRN ×3 (00:22→15:16)
[2019-04-13] MEDS: traMADol HCl 50 MG TAB PO PRN (00:22)
[2019-04-13 05:43] LABS: INR-International Normal Ratio 1.2; PTT 36.8 SEC (22.9-36.1); Prothrombin Time 15.2 SEC (12.0-14.7)
[2019-04-13 08:06] LABS: #Eosinphils 0.2 thou/uL (0.0-0.7); #Lymphocytes 2.4 thou/uL (1.20-3.40); #Monocytes 0.8 thou/uL (0.11-0.59); %Basophils 0.6 % (0.0-1.0); %Eosinophils 3.3 % (0.0-10.0); %Lymphocytes 43.6 % (21.0-51.0); %Monocytes 14.8 % (0.0-10.0); %Neutrophils 37.7 % (42.0-75.0); Hemoglobin 7.6 g/dL (14.0-18.0); Mean Corpuscular HGB CONC 34.6 g/dL (32.0-36.0); Mean Corpuscular Hemoglobin 35.4 pg (27.0-31.0); Mean Platelet Volume 7.7 fL (7.4-10.4); Platelet Count 127 thou/uL (130-400); Red Blood Cell (RBC) Count 2.14 mill/uL (4.70-6.10); White Blood Cell (WBC) Count 5.4 thou/uL (4.8-10.8)
[2019-04-13 08:24] LABS: Anion Gap 11 mmol/L (10-20); BUN (Urea Nitrogen) 16 mg/dL (8.4-25.7); Calc. Creatinine Clearance 65 mL/min (70-130); Calcium 8.3 mg/dL (7.8-10.44); Carbon Dioxide 18 mmol/L (23-31); Chloride 114 mmol/L (98-107); Estimated GFR-MDRD 74; Glucose 104 mg/dL (83-110); Potassium 3.3 mmol/L (3.5-5.1); Sodium 140 mmol/L (136-145)
[2019-04-13] MEDS: Amlodipine 10 MG TAB PO SCH (09:18)
[2019-04-13] MEDS: Lisinopril 10 MG TAB PO SCH (09:18)
[2019-04-13] MEDS: Cholestyramine/Aspartame 4 gm Packet PO SCH (10:14)
[2019-04-13] MEDS: Citrucel 500 MG TAB PO SCH (10:14)
[2019-04-13] MEDS ORDERED: Fluconazole 100 MG TAB PO SCH (11:30)
--- NOTE | 2019-04-13 11:41 | OP ---
DATE OF PROCEDURE: 04/13/2019 PROCEDURE PERFORMED: Esophagogastroduodenoscopy with biopsy. PREOPERATIVE DIAGNOSES: Gastrointestinal bleed and chronic diarrhea. DESCRIPTION OF PROCEDURE: Informed consent was obtained from the patient. He was sedated with total intravenous anesthesia. The bite block was placed, and the endoscope was advanced easily to the second portion of the duodenum and retroflexion was performed in the stomach. The esophagus had multiple small white plaques in the upper and lower esophagus consistent with Tonie esophagitis. This is mild overall that was present throughout the entire esophagus scattered. The GE junction was normal. The stomach was normal including retroflexed views. The pylorus in first and second portions of the duodenum was normal overall, but there were lymphangiectasias through the second portion of the duodenum. Duodenal biopsies were obtained. Esophageal biopsies were obtained as well. IMPRESSION: 1. Mild fungal esophagitis, biopsied. 2. Lymphangiectasias in the second portion of the duodenum, unlikely of clinical significance, biopsied. 3. Otherwise normal upper endoscopy. RECOMMENDATIONS: 1. Await histopathology. 2. Fluconazole 200 mg today and then 100 mg daily for 13 more days. 3. Advance diet. 4. I will sign off. Please call if GI can be of assistance. Job ID: [id number]
[2019-04-13] MEDS ORDERED: PROPOFOL 200 MG/20 ML VIAL ONE (12:31)
[2019-04-13 16:25] VITALS: BP 162/67; TEMP 97
[2019-04-14] MEDS ORDERED: Fluconazole 100 MG TAB PO SCH (09:00)
--- NOTE | 2019-04-15 03:53 | DIS ---
DATE OF ADMISSION: 04/07/2019 DATE OF DISCHARGE: 04/13/2019 DISCHARGE DIAGNOSES: 1. Acute metabolic encephalopathy secondary to dehydration. 2. Dehydration. 3. Acute kidney injury. 4. Chronic diarrhea. 5. Gastrointestinal bleed. 6. Supratherapeutic INR. 7. Acute blood loss anemia. 8. Atrial fibrillation. 9. History of colon cancer. 10. Mild fungal esophagitis. HISTORY OF PRESENT ILLNESS: This patient is an 83-year-old male with a history of severe colonic polyposis that ultimately resulted in 2 sites of cancer requiring a subtotal colectomy. Subsequently, the patient had chemotherapy, which was reportedly enough to keep the patient fully in remission even with some subsequent identified liver METS. However, he was planned to have some continued chemotherapy to finish out a course. The patient was suffering from significant chronic diarrhea. He was seen in the Oncology Clinic where it was felt he may have an acute colitis and was placed on antibiotics. He reported that his diarrhea improved transiently, but became more severe. Subsequently, he started having some generalized weakness and altered mental status with confusion and was subsequently brought to the hospital. There the initial workup was concerning for acute kidney injury and apparent dehydration. HOSPITAL COURSE: The patient was admitted to the hospital and started on aggressive fluid resuscitation. With that, his renal function improved daily and ultimately returned back to baseline. The patient was noted to have worsening anemia on a daily basis, which was initially felt to be due to fluid resuscitation. However, it persisted beyond those levels and at that time, the patient's reported that she had seen some blood in the patient's stool. Hemoccult was obtained and was positive; therefore GI was consulted. The patient was found to have had previous INR checks that were elevated by the house worker. Therefore, repeat INR was obtained at this time and was elevated to the level of 13. The patient's oncologist, Dr. Ritchie was contacted , who was also unaware of reasons why the patient would have elevated INR. However, review of the record indicated the patient had actually been on warfarin at home , which was not initially reported. The patient indicated that he had been on it for atrial fibrillation, although that diagnosis had been questioned by Dr. Zamarripa, who indicated she was never firmly sure that he actually had that diagnosis. On that particular day, the patient was noted to be in atrial fibrillation for the first time during his hospitalization. Therefore, it was felt that the patient's INR was elevated due to the warfarin therapy along with the antibiotics that he had received for the colitis. He received vitamin K and FFP and had prompt reversal of his warfarin with normalization of his INR. Once that occurred, the patient did undergo an EGD, which showed mild fungal esophagitis, but no specific source of bleeding. The patient did require 1 unit of blood transfusion. However, his subsequent hemoglobin remained stable. He felt substantially better and was able to get up around and ambulate without significant dyspnea as he had before. With that, the patient was felt to be stable for discharge. The patient did have some Questran started for his chronic diarrhea and initially had some improvement. GI also added some Citrucel as a bulking agent and he had slight regression with the diarrhea. However, it was felt that there was opportunities to continue to increase the dosing of the Questran over time in order to help treat these symptoms. He also remained on Lomotil. PHYSICAL EXAMINATION: VITAL SIGNS: On the day of discharge, temperature was 97, pulse 72, respirations 16, O2 saturation 100% on room air, BP is 162/67. GENERAL: He was awake and alert. HEART: Irregularly irregular without murmurs. LUNGS: Clear. ABDOMEN: Benign. EXTREMITIES: No cyanosis, clubbing, or edema. LABORATORY DATA: His hemoglobin was stable at 7.6, from 7.5 the previous day. DISPOSITION: The patient is discharged to rehab facility. He will continue with Citrucel 500 mg daily and Questran 2 g b.i.d. with dose to be escalated as needed, fluconazole 100 mg daily, Imodium 2 mg as needed. He will continue with Norvasc 10 mg daily, lisinopril 10 mg p.o. daily, tamsulosin 0.4 mg daily. He is to discontinue the warfarin. ACTIVITY: He is to have activity as tolerated. DIET: Heart healthy diet. He will have OT and PT. He is encouraged to follow up with Dr. Durham, his PCP and with Dr. Zamarripa to consider the need for ongoing anticoagulation therapy in the future, if so it would be likely the patient would benefit from a newer agent rather than returning to the warfarin. Dr. Ritchie recommended the patient avoid anticoagulation given his current situation. He can also follow up with Dr. Anaya in 2 to 3 weeks. TIME SPENT: Total time in discharge activities was 39 minutes. Job ID: [id number] MTDD
== END 2019-04-13 17:10 | DRG 682 ==
LOC: ERS 10:46 → MERGE 15:12 → T4-A 15:12
PROVIDERS: ADMIT Internal Medicine; ATTEND Internal Medicine
PROC: 30233L1 Transfusion of Nonautologous Fresh Plasma into Peripheral Vein, Percutaneous Approach (ICD-10-PCS; 2019-04-11)
PROC: 30233N1 Transfusion of Nonautologous Red Blood Cells into Peripheral Vein, Percutaneous Approach (ICD-10-PCS; 2019-04-11)
PROC: 0DB58ZX Excision of Esophagus, Via Natural or Artificial Opening Endoscopic, Diagnostic (ICD-10-PCS; principal; 2019-04-13)
DX: N17.9 Acute kidney failure, unspecified (principal); G93.41 Metabolic encephalopathy; D62 Acute posthemorrhagic anemia; C18.9 Malignant neoplasm of colon, unspecified; E87.2 Acidosis; K92.1 Melena; C78.7 Secondary malignant neoplasm of liver and intrahepatic bile duct; E86.0 Dehydration; K52.9 Noninfective gastroenteritis and colitis, unspecified; R79.1 Abnormal coagulation profile; I48.91 Unspecified atrial fibrillation; K20.8 Other esophagitis; Z90.49 Acquired absence of other specified parts of digestive tract; I95.9 Hypotension, unspecified; Z87.891 Personal history of nicotine dependence; Z98.890 Other specified postprocedural states; Z88.0 Allergy status to penicillin
CPT/HCPCS: 36415; 36430; 70450; 71045; 80048; 80053; 80500; 82274; 82607; 82728; 82746; 83540; 83550; 83605; 83690; 83735; 85025; 85240; 85250; 85610; 85611; 85730; 85732; 86850; 86900; 86901; 87040; 87045; 87046; 87324; 87427; 87449; 88305; 88312; 88313; 93005; 93010; 96361; 96374; J1644; J2060; J2704; J3430; P9016; P9059

== ENCOUNTER 2019-04-30 15:16 | Inpatient (IN) | payer MEDICARE, BC ==
[2019-04-30 16:21] LABS: Alcohol Less than 10 mg/dL (Less than 10); Salicylate Less than 8.0 mg/dL (15.0-30.0)
[2019-04-30 16:45] LABS: CKMB 0.9 ng/mL (0-6.6)
[2019-04-30 16:51] LABS: Amphetamine Not Detected (NotDetected); Barbiturates Screen Not Detected (NotDetected); Benzodiazepine Screen Not Detected (NotDetected); Cocaine Metabolite Screen Not Detected (NotDetected); Medtox Control Line Valid? VALID (VALID); Medtox Reader # READER 4; Methadone Not Detected (NotDetected); Methamphetamine Not Detected (NotDetected); Opiate Screen Not Detected (NotDetected); Oxycodone Screen Not Detected (NotDetected); Phencyclidine (PCP) Not Detected (NotDetected); THC/Cannabinoid Screen Not Detected (NotDetected); Tricyclic Screen Not Detected (NotDetected)
[2019-04-30] MEDS ORDERED: Senokot S 8.6-50 MG TAB PO PRN (18:02)
[2019-04-30] MEDS ORDERED: Ondansetron ODT 4 MG TAB PO PRN (18:02)
[2019-04-30] MEDS ORDERED: Bisacodyl 10 MG SUPP PR PRN (18:02)
[2019-04-30] MEDS ORDERED: Loperamide HCl 2 MG CAP PO PRN (18:02)
[2019-04-30] MEDS ORDERED: Acetaminophen 325 MG TAB PO PRN (18:02)
[2019-04-30] MEDS ORDERED: Calcium Carbonate 500 MG ChewTAB PO PRN (18:02)
[2019-04-30] MEDS ORDERED: Ondansetron PF 4 MG/2 ML Vial IVP PRN (18:02)
[2019-04-30] MEDS ORDERED: Sodium Chloride 0.9% 1,000 ML IV SCH (18:02)
[2019-04-30] MEDS ORDERED: methylPREDNISolone Sod Succ 40 MG VIAL ONE (18:39)
[2019-04-30 18:58] LABS: Lactic Acid 3.1 mmol/L (0.5-2.2)
--- NOTE | 2019-04-30 19:37 | HP ---
PRIMARY CARE PHYSICIAN: Dr. Russ Durham. REASON FOR ADMISSION: Transferred from [facility] for shortness of breath and sepsis. HISTORY OF PRESENT ILLNESS: An 83-year-old male, who has history of colon cancer, who was treated with chemotherapy, who presented to [facility] with increasing shortness of breath. The patient was tachypneic and tachycardic. He was also having fever. The patient was altered. The patient was admitted in our hospital about three weeks ago for dehydration and diarrhea. At that time, the patient had endoscopy, and the patient was found with esophagitis from fungus, and he was treated with Diflucan. The patient has on and off diarrhea since then. For last 2 days, the patient was having dry cough and subsequently, he started becoming more confused and he was more and more short of breath. He was wheezing. At other emergency room, influenza screen was negative. The patient was very weak and that is why he was transferred to our hospital for further evaluation. The patient had lactic acidosis and elevated troponin. The patient was given aztreonam and vancomycin and IV fluid, and subsequently, he was transferred to our hospital. REVIEW OF SYSTEMS: CONSTITUTIONAL: Negative for weight loss or gain, ability to conduct usual activities. SKIN: Negative for rash, itching. EYES: Negative for double vision, pain. ENT/MOUTH: Negative for nose bleeding, neck stiffness, pain, tenderness. CARDIOVASCULAR: Negative for palpitations, dyspnea on exertion, orthopnea. RESPIRATORY: Negative for shortness of breath, wheezing, cough, hemoptysis, fever or night sweats. GASTROINTESTINAL: Negative for poor appetite, abdominal pain, heartburn, nausea, vomiting, constipation, or diarrhea. GENITOURINARY: Negative for urgency, frequency, dysuria, nocturia. MUSCULOSKELETAL: Negative for pain, swelling. NEUROLOGIC/PSYCHIATRIC: Negative for anxiety, depression. ALLERGY/IMMUNOLOGIC: Negative for skin rash, bleeding tendency. Please see my HPI for pertinent positives and negatives. All other review of systems reviewed and negative except as mentioned in HPI. PAST MEDICAL HISTORY: Hypertension, atrial fibrillation, benign enlargement of prostate, and history of colon cancer. PAST SURGICAL HISTORY: Bilateral knee replacements, right shoulder repair, and prostatectomy. PAST PSYCHIATRIC HISTORY: Reviewed and negative. SOCIAL HISTORY: The patient is a former smoker. He quit smoking more than 10 years ago. No history of alcohol abuse. No history of illicit drug abuse. He lives at home with family. ALLERGIES: PENICILLIN. CURRENT HOME MEDICATIONS: 1. Amlodipine 10 mg daily. 2. Lisinopril 10 mg twice daily. 3. Aspirin 81 mg daily. 4. Ferrous sulfate 325 mg p.o. daily. 5. Questran daily. EMERGENCY ROOM COURSE: The patient received aztreonam, vancomycin, IV fluid, Tylenol, and DuoNeb therapy. PHYSICAL EXAMINATION: VITAL SIGNS: On arrival, blood pressure 167/81, pulse 103, respiratory rate was 30, temperature 98.3, saturation 100% on room air. Weight 82.5 kg. GENERAL: The patient is currently awake, tachypneic, tachycardic, wheezing, appears weak. HEENT: Head, normocephalic and atraumatic. Eyes; pupils round and reactive to light. Extraocular muscles intact. ENT; oropharynx within normal limits. Moist mucous membranes. No oral lesion. No pharyngeal erythema. No exudate. NECK: Supple. No JVD. No meningeal signs of irritation. LUNGS: Wheezing heard, but the patient does not have any rhonchi or rales in the chest, but it is from upper airway. No accessory muscles of respiration in use. Air entry reduced both side. CARDIAC: S1 and S2. Irregular, tachycardia. No murmur. No gallop. No rub. ABDOMEN: Soft, bowel sounds present, surgical scar noted. No peritoneal sign. No guarding. No rigidity. No rebound. BACK: Unremarkable. No CVA tenderness. EXTREMITIES: Upper extremities; passive movement of all joints is normal. Lower extremities; no edema, good distal pulsation. SKIN: No skin rash. HEMATOLOGICAL SYSTEM: No lymphadenopathy. PSYCHIATRIC: Normal affect. SIGNIFICANT LABORATORY DATA: EKG showing atrial fibrillation with controlled ventricular response. CT angiography showing 1.2 cm subpleural pulmonary nodule, stable, chronic changes. Chest x-ray, no acute cardiopulmonary process. CT brain negative for any acute intracranial process. CBC; WBC 10.9, hemoglobin 10.4, MCV 107.9, platelets 271. INR 1.1. D-dimer 5.08. BMP; sodium 138, potassium 4.7, chloride 111, carbon dioxide 14, anion gap 18, BUN 29, creatinine 1.33, lactic acid 2.9. LFT; AST 16, ALT 14, alkaline phosphatase 105, albumin 3.9. BNP 166. Troponin 0.015 and then 0.031. Ammonia level less than 12. TSH 3.04. Urinalysis normal. Urine drug screen negative. Serum drug screen negative. ASSESSMENT AND PLAN: 1. Sepsis. 2. Type 2 myocardial infarction due to demand ischemia. 3. Hyperchloremic metabolic acidosis and lactic acidosis. 4. Dyspnea. 5. Macrocytic anemia. 6. History of colon cancer. 7. Hypertension. 8. Benign enlargement of prostate. PLAN: Home medications will be reconciled. We will start IV fluid with dextrose with sodium bicarbonate. We will start vancomycin and levofloxacin. We will check respiratory virus panel. We will repeat labs tomorrow. We will start Solu-Medrol 40 mg IV q.6 hours hourly, DuoNeb therapy every 6 hourly, probiotics. We will follow up on culture result. Plan of care discussed with the family member at bedside in the emergency room. PROGNOSIS: Guarded. We will closely monitor for any decompensation. Job ID: [id number]
[2019-04-30 20:36] LABS: Troponin I 0.058 ng/mL (< 0.028)
[2019-04-30 22:07] VITALS: BMI 25.2
[2019-04-30 23:15] LABS: Troponin I 0.043 ng/mL (< 0.028)
[2019-04-30] MEDS: methylPREDNISolone Sod Succ 40 MG VIAL IVP SCH (23:27)
[2019-04-30] MEDS: Famotidine 20 MG TAB PO SCH (23:27)
[2019-04-30] MEDS: Lisinopril 10 MG TAB PO SCH (23:27)
[2019-04-30] MEDS: Sodium Bicarbonate 50 MEQ in Dextrose 5 %-0.45 % NaCl 1,000 ML IV SCH (23:28)
[2019-04-30] MEDS ORDERED: methylPREDNISolone Sod Succ/PF 125 MG/2 ML VIAL IVP SCH (23:59)
[2019-05-01 04:56] LABS: #Lymphocytes 0.5 thou/uL (1.20-3.40); #Monocytes 0.1 thou/uL (0.11-0.59); #Neutrophils 5.2 thou/uL (1.40-6.50); %Eosinophils 0.2 % (0.0-10.0); %Lymphocytes 8.5 % (21.0-51.0); %Monocytes 1.7 % (0.0-10.0); %Neutrophils 89.6 % (42.0-75.0); Hemoglobin 8.1 g/dL (14.0-18.0); Mean Corpuscular HGB CONC 32.4 g/dL (32.0-36.0); Mean Corpuscular Hemoglobin 34.4 pg (27.0-31.0); Mean Platelet Volume 7.8 fL (7.4-10.4); Platelet Count 205 thou/uL (130-400); Red Blood Cell (RBC) Count 2.35 mill/uL (4.70-6.10); White Blood Cell (WBC) Count 5.8 thou/uL (4.8-10.8)
[2019-05-01 05:34] LABS: ALT (SGPT) 7 U/L (8-55); AST (SGOT) 10 U/L (5-34); Albumin 3.1 g/dL (3.4-4.8); Alkaline Phosphatase 71 U/L (40-110); Anion Gap 13 mmol/L (10-20); BUN (Urea Nitrogen) 24 mg/dL (8.4-25.7); Bilirubin, Total 0.4 mg/dL (0.2-1.2); Calc. Creatinine Clearance 53 mL/min (70-130); Calcium 8.4 mg/dL (7.8-10.44); Carbon Dioxide 15 mmol/L (23-31); Chloride 112 mmol/L (98-107); Estimated GFR-MDRD 55; Globulin 2.7 g/dL (2.4-3.5); Glucose 144 mg/dL (83-110); Potassium 4.5 mmol/L (3.5-5.1); Protein, Total 5.8 g/dL (5.8-8.1); Sodium 135 mmol/L (136-145)
[2019-05-01] MEDS: methylPREDNISolone Sod Succ 40 MG VIAL IVP SCH ×3 (06:29→20:43)
[2019-05-01] MEDS: Enoxaparin Sodium 40 MG/0.4 ML SYRINGE SC SCH (08:46)
[2019-05-01] MEDS: Saccharomyces boulardii 250 MG CAP PO SCH (08:46)
[2019-05-01] MEDS: Tamsulosin HCl 0.4 MG CAP PO SCH (08:46)
[2019-05-01] MEDS: Lisinopril 10 MG TAB PO SCH ×2 (08:46→20:42)
[2019-05-01] MEDS: Amlodipine 10 MG TAB PO SCH (08:47)
[2019-05-01] MEDS: Famotidine 20 MG TAB PO SCH ×2 (08:47→20:42)
[2019-05-01] MEDS ORDERED: Prevnar 13-Val Conj/PF 0.5 ML SYRINGE IM ONE (09:00)
[2019-05-01] MEDS ORDERED: FLU VACC TS2019-20(65YR UP)/PF 180 MCG/0.5 ML SYRINGE IM ONE (09:00)
[2019-05-01] MEDS: Vancomycin 1.5 GRAM/300 ML BAG 1.5 GM in Premix Bag 1 BAG IVPB SCH (14:22)
[2019-05-01] MEDS: Sodium Bicarbonate 50 MEQ in Dextrose 5 %-0.45 % NaCl 1,000 ML IV SCH (15:31)
--- NOTE | 2019-05-01 21:11 | PDOC.HOSPP ---
- Subjective Encounter Date: 05/01/19 Encounter Time: 10:00 Subjective: no overnight events. This morning, breathing is better but remains mildy short of breath especially on ambulation. Otherwise, no complaints. - Objective Vital Signs & Weight: Vital Signs (12 hours) Temp Pulse Pulse Pulse Resp BP BP 05/01/19 19:14 98.5 F 87 18 05/01/19 18:39 75 14 05/01/19 16:00 97.6 F 84 16 05/01/19 13:44 70 14 05/01/19 12:50 79 124/60 138/65 05/01/19 11:25 97.5 F L 82 20 05/01/19 09:48 77 76 149/66 H 149/76 H BP Pulse Ox Pulse Ox Pulse Ox 05/01/19 19:14 131/62 99 05/01/19 18:39 99 05/01/19 16:00 129/62 96 05/01/19 13:44 05/01/19 12:50 99 100 05/01/19 11:25 171/80 H 100 05/01/19 09:48 100 100 Weight Weight 186 lb I&O: 04/30/19 05/01/19 05/02/19 06:59 06:59 06:59 Intake Total 1001 2160 Output Total 600 Balance 401 2160 Result Diagrams: 05/01/19 04:18 05/01/19 04:18 Hospitalist ROS - Review of Systems Constitutional: denies: fever, chills, sweats, weakness, malaise, other Respiratory: reports: shortness of breath, SOB with excertion. denies: cough, dry, hemoptysis, pleuritic pain, sputum, wheezing, other Cardiovascular: denies: chest pain, palpitations, orthopnea, paroxysmal noc. dyspnea, edema, light headedness, other Gastrointestinal: denies: nausea, vomiting, abdominal pain, diarrhea, constipation, melena, hematochezia, other Genitourinary: denies: dysuria, frequency, incontinence, hematuria, retention, other Neurological: reports: weakness - Medication Medications: Active Medications Generic Name Dose Route Start Last Admin Trade Name Freq PRN Reason Stop Dose Admin Albuterol/Ipratropium 3 ml 04/30/19 19:00 05/01/19 18:39 Duoneb NEB 3 ml [id number] SARAN Administration Amlodipine Besylate 10 mg 05/01/19 09:00 05/01/19 08:47 Norvasc PO 10 mg DAILY SARAN Administration Enoxaparin Sodium 40 mg 05/01/19 09:00 05/01/19 08:46 Lovenox SC 40 mg 0900 SARAN Administration Famotidine 20 mg 04/30/19 21:00 05/01/19 20:42 Pepcid PO 20 mg BID SARAN Administration Levofloxacin 750 mg/ Device 150 mls @ 100 mls/hr 05/01/19 21:00 05/01/19 20: 41 IVPB 150 mls 2100 SARAN Administration Sodium Bicarbonate 50 meq/ 1,050 mls @ 75 mls/hr 04/30/19 19:30 05/01/19 15: 31 Dextrose/Sodium Chloride IV 1,050 mls .Q14H SARAN Administration Vancomycin HCl 1.5 gm/ Device 300 mls @ 200 mls/hr 05/01/19 14:00 05/01/19 14 :22 IVPB 300 mls 1400 SARAN Administration Lisinopril 10 mg 04/30/19 21:00 05/01/19 20:42 Zestril PO 10 mg BID SARAN Administration Saccharomyces Boulardii 250 mg 05/01/19 09:00 05/01/19 08:46 Florastor PO 250 mg DAILY SARAN Administration Tamsulosin HCl 0.4 mg 05/01/19 09:00 05/01/19 08:46 Flomax PO 0.4 mg DAILY SARAN Administration - Exam General Appearance: NAD, awake alert Heart: RRR, no murmur, no gallops, no rubs Respiratory: CTAB, no wheezes, no rales, no ronchi Gastrointestinal: soft, non-tender, non-distended, normal bowel sounds Extremities: no edema Psychiatric: normal affect, normal behavior, A&O x 3 Hosp A/P - Plan #infleunza Pneumonia -started oseltamivir -stop steroids due to increased mortality in infleunza pneumonia patients -continue supportive treatment Otherwise, treatment unchanged
[2019-05-01] MEDS: Oseltamivir 75 MG CAP PO SCH (21:51)
[2019-05-02] MEDS: Sodium Bicarbonate 50 MEQ in Dextrose 5 %-0.45 % NaCl 1,000 ML IV SCH ×2 (02:20→13:45)
[2019-05-02 05:03] LABS: Anion Gap 14 mmol/L (10-20); BUN (Urea Nitrogen) 23 mg/dL (8.4-25.7); Calc. Creatinine Clearance 56 mL/min (70-130); Calcium 8.7 mg/dL (7.8-10.44); Carbon Dioxide 14 mmol/L (23-31); Chloride 113 mmol/L (98-107); Estimated GFR-MDRD 58; Glucose 119 mg/dL (83-110); Magnesium 1.6 mg/dL (1.6-2.6); Potassium 4.6 mmol/L (3.5-5.1); Sodium 136 mmol/L (136-145)
[2019-05-02] MEDS: Saccharomyces boulardii 250 MG CAP PO SCH (08:57)
[2019-05-02] MEDS: Amlodipine 10 MG TAB PO SCH (08:57)
[2019-05-02] MEDS: Tamsulosin HCl 0.4 MG CAP PO SCH (08:57)
[2019-05-02] MEDS: Oseltamivir 75 MG CAP PO SCH ×2 (08:57→21:22)
[2019-05-02] MEDS: Enoxaparin Sodium 40 MG/0.4 ML SYRINGE SC SCH (08:57)
[2019-05-02] MEDS: Famotidine 20 MG TAB PO SCH ×2 (08:57→21:22)
[2019-05-02] MEDS: Lisinopril 10 MG TAB PO SCH ×2 (08:57→21:22)
[2019-05-02 13:25] LABS: Vancomycin, Trough 10.5 ug/mL
[2019-05-02] MEDS: Vancomycin 1.5 GRAM/300 ML BAG 1.5 GM in Premix Bag 1 BAG IVPB SCH ×2 (13:45→13:50)
[2019-05-02] MEDS: Vancomycin HCl 750 MG in Sodium Chloride 0.9% 250 ML 250 ML IVPB SCH (16:03)
[2019-05-02] MEDS ORDERED: Folic Acid/Vit B Comp W-C PO SCH (18:15)
--- NOTE | 2019-05-02 18:24 | PDOC.HOSPP ---
- Subjective Encounter Date: 05/02/19 Encounter Time: 10:00 Subjective: no overnight events. This morning, continues to feel well. Had several bowel movements yesterday but none today. - Objective Vital Signs & Weight: Vital Signs (12 hours) Temp Pulse Resp BP Pulse Ox 05/02/19 16:00 97.7 F 95 14 166/74 H 99 05/02/19 13:09 74 16 97 05/02/19 12:00 98.4 F 73 16 149/70 H 99 05/02/19 08:50 98.3 F 85 16 131/73 99 05/02/19 06:51 98 05/02/19 06:49 74 16 97 Weight Weight 186 lb I&O: 05/01/19 05/02/19 05/03/19 06:59 06:59 06:59 Intake Total 1001 2159 2049 Output Total 600 Balance 401 2159 2049 Result Diagrams: 05/01/19 04:18 05/02/19 04:35 Hospitalist ROS - Review of Systems Constitutional: denies: fever, chills, sweats, weakness, malaise, other Respiratory: denies: cough, dry, shortness of breath, hemoptysis, SOB with excertion, pleuritic pain, sputum, wheezing, other Cardiovascular: denies: chest pain, palpitations, orthopnea, paroxysmal noc. dyspnea, edema, light headedness, other Gastrointestinal: denies: nausea, vomiting, abdominal pain, diarrhea, constipation, melena, hematochezia, other Genitourinary: denies: dysuria, frequency, incontinence, hematuria, retention, other - Medication Medications: Active Medications Generic Name Dose Route Start Last Admin Trade Name Freq PRN Reason Stop Dose Admin Albuterol/Ipratropium 3 ml 04/30/19 19:00 05/02/19 13:09 Duoneb NEB 3 ml [id number] SARAN Administration Amlodipine Besylate 10 mg 05/01/19 09:00 05/02/19 08:57 Norvasc PO 10 mg DAILY SARAN Administration Enoxaparin Sodium 40 mg 05/01/19 09:00 05/02/19 08:57 Lovenox SC 40 mg 0900 SARAN Administration Famotidine 20 mg 04/30/19 21:00 05/02/19 08:57 Pepcid PO 20 mg BID SARAN Administration Levofloxacin 750 mg/ Device 150 mls @ 100 mls/hr 05/01/19 21:00 05/01/19 20: 41 IVPB 150 mls 2100 SARAN Administration Sodium Bicarbonate 50 meq/ 1,050 mls @ 75 mls/hr 04/30/19 19:30 05/02/19 13: 45 Dextrose/Sodium Chloride IV 1,050 mls .Q14H SARAN Administration Vancomycin HCl 750 mg/ Sodium 250 mls @ 250 mls/hr 05/02/19 14:00 05/02/19 16 :03 Chloride IVPB 250 mls 0200,1400 SARAN Administration Lisinopril 10 mg 04/30/19 21:00 05/02/19 08:57 Zestril PO 10 mg BID SARAN Administration Oseltamivir Phosphate 75 mg 05/01/19 21:00 05/02/19 08:57 Tamiflu PO 75 mg BID SARAN Administration Saccharomyces Boulardii 250 mg 05/01/19 09:00 05/02/19 08:57 Florastor PO 250 mg DAILY SARAN Administration Tamsulosin HCl 0.4 mg 05/01/19 09:00 05/02/19 08:57 Flomax PO 0.4 mg DAILY SARAN Administration - Exam General Appearance: NAD, awake alert Neck: no JVD Heart: RRR, no murmur, no gallops, no rubs, normal peripheral pulses Respiratory: CTAB, no wheezes, no rales, no ronchi, normal chest expansion, no tachypnea, normal percussion Gastrointestinal: soft, non-tender, non-distended, normal bowel sounds, no palpable masses, no hepatomegaly, no splenomegaly, no bruit Extremities: no edema Psychiatric: normal affect, normal behavior, A&O x 3 Hosp A/P - Plan #infleunza Pneumonia -high risk for complications considering comorbidities -continue oseltamivir -continue supportive treatment Otherwise, treatment unchanged
[2019-05-02] MEDS: Sodium Chloride 0.9% 1,000 ML IV SCH (21:23)
[2019-05-03] MEDS: Vancomycin HCl 750 MG in Sodium Chloride 0.9% 250 ML 250 ML IVPB SCH (03:32)
[2019-05-03] MEDS: Sodium Chloride 0.9% 1,000 ML IV SCH (03:57)
[2019-05-03 06:23] LABS: Anion Gap 13 mmol/L (10-20); BUN (Urea Nitrogen) 19 mg/dL (8.4-25.7); Calc. Creatinine Clearance 55 mL/min (70-130); Calcium 8.5 mg/dL (7.8-10.44); Carbon Dioxide 21 mmol/L (23-31); Chloride 111 mmol/L (98-107); Estimated GFR-MDRD 57; Glucose 84 mg/dL (83-110); Magnesium 1.5 mg/dL (1.6-2.6); Sodium 141 mmol/L (136-145)
[2019-05-03] MEDS: Tamsulosin HCl 0.4 MG CAP PO SCH (08:52)
[2019-05-03] MEDS: Enoxaparin Sodium 40 MG/0.4 ML SYRINGE SC SCH (08:52)
[2019-05-03] MEDS: Lisinopril 10 MG TAB PO SCH (08:52)
[2019-05-03] MEDS: Saccharomyces boulardii 250 MG CAP PO SCH (08:52)
[2019-05-03] MEDS: Oseltamivir 75 MG CAP PO SCH (08:52)
[2019-05-03] MEDS: Famotidine 20 MG TAB PO SCH (08:52)
[2019-05-03] MEDS: Amlodipine 10 MG TAB PO SCH (08:52)
[2019-05-03] MEDS ORDERED: Folic Acid/Vit B Comp W-C PO SCH (09:00)
[2019-05-03 12:46] VITALS: BP 164/88; TEMP 98.2
[2019-05-03] MEDS ORDERED: Lisinopril 20 MG TAB PO SCH (21:00)
--- NOTE | 2019-05-04 12:10 | DIS ---
DATE OF ADMISSION: 04/30/2019 DATE OF DISCHARGE: 05/03/2019 HOSPITAL COURSE: Mr. Vásquez is an 83-year-old man with a medical history of colon cancer who presented with shortness of breath and tachycardia. He was diagnosed with influenza pneumonia. 1. Recurrence of pneumonia: a. The patient was admitted and remained hemodynamically stable and afebrile throughout his stay. b. Considering his high risk for complications concerning comorbidities, he was treated with Oseltamivir. c. The patient was treated for a total of 5 days worth of Oseltamivir and was scheduled for followup appointment with his primary care physician. 2. Type 2 non-ST elevated myocardial infarction most likely due to infection. a. The patient had no complaints of typical cardiac pain throughout the admission and dyspnea resolved with the treatment of influenza. b. No further workup is necessary. 3. Microcytic anemia most likely due to deficient nutrition. a. The patient will be followed up with his primary care physician. 4. Urinary retention. a. The patient was started on tamsulosin. b. Should be followed by his primary care physician, may be discontinued if the patient can urinate spontaneously without urinary retention. On the day of discharge, the patient was hemodynamically stable. Vital signs were unremarkable with the exception of hypertension, for which the patient was started on treatment with antihypertensives. PHYSICAL EXAMINATION: GENERAL: He was in no apparent distress. Awake and alert. NECK: No JVD. HEART: Regular rate and rhythm. No murmur. No gallops. No rubs. Normal peripheral pulses. RESPIRATORY EXAM: Clear to auscultation bilaterally. No wheezes. No rales. No rhonchi. Normal chest expansion. No tachypnea. GASTROINTESTINAL: Soft, nontender, nondistended. Normal bowel sounds. EXTREMITY: No edema. PSYCHIATRIC: Normal affect. Normal behavior. Alert and oriented x3. Job ID: [id number]
--- NOTE | 2019-05-05 08:45 | EKG ---
Test Reason : Blood Pressure : / mmHG Vent. Rate : 073 BPM Atrial Rate : 091 BPM P-R Int : 000 ms QRS Dur : 092 ms QT Int : 400 ms P-R-T Axes : 000 -53 031 degrees QTc Int : 440 ms Atrial fibrillation with a competing junctional pacemaker Incomplete right bundle branch block Left anterior fascicular block Abnormal ECG Confirmed by ARNIE ROSALES D.O. ([id number]), legal editor DENNY LOZADA ([id number]) on 05/05/2019 8:44:41 AM Referred By: Confirmed By:ARNIE ROSALES D.O.
== END 2019-05-03 15:16 | disposition home or self-care (01) | DRG 871 ==
LOC: ERS 15:16 → ERHOLD 16:35 → 2NO 20:49 → T4-A 05-02 19:37
PROVIDERS: ADMIT Internal Medicine; ATTEND Internal Medicine
DX: A41.9 Sepsis, unspecified organism (principal); I21.A1 Myocardial infarction type 2; J11.00 Influenza due to unidentified influenza virus with unspecified type of pneumonia; E87.2 Acidosis; I10 Essential (primary) hypertension; I48.91 Unspecified atrial fibrillation; D64.9 Anemia, unspecified; N40.0 Benign prostatic hyperplasia without lower urinary tract symptoms; Z96.653 Presence of artificial knee joint, bilateral; Z85.038 Personal history of other malignant neoplasm of large intestine; Z87.891 Personal history of nicotine dependence; Z88.0 Allergy status to penicillin
CPT/HCPCS: 36415; 80048; 80053; 80202; 80306; 80307; 82140; 82553; 83605; 83735; 85025; 87633; 87798; 93005; 94640; 96361; 96374; J1650; J1956; J2920; J3370; J7042; J7050; J7620

== ENCOUNTER 2019-05-06 17:37 | Emergency (ER) | payer MEDICARE, BC ==
[2019-05-06] MEDS ORDERED: Magnesium 2 GM/50 ML BAG (IN WATER) ONE (18:02)
[2019-05-06] MEDS ORDERED: cefTRIAXone\\ROCEPHIN 1 GM VIAL ONE (18:02)
[2019-05-06] MEDS ORDERED: Dexamethasone 4 mg/ml Vial ONE (18:02)
[2019-05-06 18:19] LABS: #Eosinphils 0.1 thou/uL (0.0-0.7); #Lymphocytes 2.3 thou/uL (1.20-3.40); #Monocytes 0.8 thou/uL (0.11-0.59); #Neutrophils 3.9 thou/uL (1.40-6.50); %Basophils 0.3 % (0.0-1.0); %Lymphocytes 32.8 % (21.0-51.0); %Monocytes 10.8 % (0.0-10.0); %Neutrophils 55.1 % (42.0-75.0); Mean Platelet Volume 7.6 fL (7.4-10.4); Platelet Count 218 thou/uL (130-400); RBC Distribution Width 15.5 % (11.5-14.5); Red Blood Cell (RBC) Count 2.85 mill/uL (4.70-6.10)
[2019-05-06 18:41] LABS: ALT (SGPT) 12 U/L (8-55); AST (SGOT) 15 U/L (5-34); Albumin 3.5 g/dL (3.4-4.8); Alkaline Phosphatase 79 U/L (40-110); Anion Gap 13 mmol/L (10-20); BUN (Urea Nitrogen) 25 mg/dL (8.4-25.7); Bilirubin, Total 0.5 mg/dL (0.2-1.2); Calc. Creatinine Clearance 0 mL/min (70-130); Calcium 8.5 mg/dL (7.8-10.44); Carbon Dioxide 20 mmol/L (23-31); Chloride 109 mmol/L (98-107); Estimated GFR-MDRD 46; Globulin 2.9 g/dL (2.4-3.5); Glucose 97 mg/dL (83-110); Potassium 3.9 mmol/L (3.5-5.1); Protein, Total 6.4 g/dL (5.8-8.1); Sodium 138 mmol/L (136-145)
--- NOTE | 2019-05-06 18:48 | RAD ---
CHEST ONE VIEW: Comparison: 04-07-2019, 04-30-2019 History: Dyspnea FINDINGS: Stable left sided Mediport catheter. There is atherosclerosis of the aorta. Normal cardiac silhouette . The pulmonary vessels and hilum are normal. Costophrenic angles are clear. No masses or consolidati on. No pneumothorax or acute osseous abnormality. Re-demonstration of a right shoulder joint prosthes is. IMPRESSION: 1. Atherosclerosis. 2. No acute cardiopulmonary process. POS: PPP
--- NOTE | 2019-05-10 15:29 | EKG ---
Test Reason : SOB Blood Pressure : / mmHG Vent. Rate : 075 BPM Atrial Rate : 069 BPM P-R Int : 000 ms QRS Dur : 092 ms QT Int : 392 ms P-R-T Axes : 000 -42 021 degrees QTc Int : 437 ms Atrial fibrillation with occasional ventricular-paced complexes Left axis deviation Abnormal ECG Confirmed by SHELIA FRANZ, KESHAWN ([id number]), features editor TARUN MOSER ([id number]) on 05/10/2019 3:29:07 PM Referred By: SHELIA Confirmed By:KESHAWN BASS MD
== END 2019-05-06 19:15 | disposition home or self-care (01) ==
LOC: ERS 17:37
DX: R05 Cough (principal); I10 Essential (primary) hypertension; I48.91 Unspecified atrial fibrillation; Z87.891 Personal history of nicotine dependence; Z79.82 Long term (current) use of aspirin; Z79.899 Other long term (current) drug therapy
CPT/HCPCS: 36415; 71045; 80053; 85025; 87040; 93005; 94664; 96365; 96375; J0696; J1100; J3475